=== PATIENT | female | born 1950 | race Caucasian/White ===

== ENCOUNTER 2021-01-06 17:31 | Emergency (ER) | payer MEDICARE, SELFPAY ==
--- NOTE | ~2021-01-06 | CT_ITS ---
EXAMINATION: CT brain wo con INDICATION: Headache, diplopia, left periorbital swelling COMPARISON: None TECHNIQUE: Standard unenhanced head CT. The dose-length product (DLP) was 605.33 mGy-cm. The mA was a djusted according to patient size. Iterative reconstruction technique was employed. FINDINGS: There is no acute intraparenchymal hemorrhage. No evidence of mass lesion. No evidence of a cute infarction. There is mild periventricular and subcortical hypodensity probably related to small vessel ischemic disease. There is mild prominence of the sulci and ventricles related to cerebral atr ophy. Intracranial calcified cerebral atherosclerosis is noted. There are no extra-axial collections. There is no mass effect or midline shift. There is enlargement of the left lacrimal gland with adjac ent preseptal inflammatory change. The visualized sinuses and mastoid air cells are well aerated. IMPRESSION: 1. No acute intracranial abnormality. 2. Age related findings. 3. Findings consistent with left dacroadenitis. Reviewed, dictated and finalized at location A.
--- NOTE | ~2021-01-06 | CT_ITS ---
EXAMINATION: CT orbit BI w con INDICATION: Redness and swelling of the left eye, diplopia TECHNIQUE: Computed tomographic images of the orbits were obtained after the administration of 75 cc of Omnipaque 350 intravenous contrast. The dose-length product (DLP) was 146.79 mGy-cm. Automated exp osure control and iterative reconstruction technique were employed. COMPARISON: None FINDINGS: There is asymmetric enlargement of the left lacrimal gland compared to the right. Surroundi ng preseptal inflammatory change is seen. No intraconal inflammation is identified. The right globe a nd orbit are normal. The facial bones are unremarkable. There is mild mucosal thickening left frontal sinus and in the ethmoidal air cells. IMPRESSION: 1. Left dacroadenitis. Reviewed, dictated and finalized at location A. IMPRESSION: 1. Left dacroadenitis.
[2021-01-06 17:35] VITALS: BP 123/81; PULSE 98; RESP 18; TEMP 36.4; O2SAT 99
[2021-01-06 17:57] LABS: Basophils Percent Auto 0.6 % (0.2-1.2); Eosinophils Absolute Auto 0.1 K/mm3 (0-0.3); Eosinophils Percent Auto 1.9 % (0-4.4); Hematocrit 41.7 % (37.0-47.0); Immature Granulocyte Absolute 0.01 K/mm3 (0.00-0.031); Immature Granulocyte Percent A 0.2 % (0-0.5); Lymphocytes Absolute Auto 1.93 K/mm3 (0.9-3.2); Lymphocytes Percent Auto 29.9 % (18.3-44.2); Mean Corpuscular HGB Conc 33.6 g/dl (32-36); Mean Corpuscular Hemoglobin 31.9 pg (26-34); Mean Platelet Volume 10.3 fl (7.4-10.4); Monocytes Absolute Auto 0.6 K/mm3 (0.1-0.6); Neutrophils Absolute Auto 3.8 K/mm3 (1.3-6.7); Neutrophils Percent Auto 58.4 % (45.5-73.1); Platelet Count Result 239 k/mm3 (150-375); Red Blood Count 4.39 M/mm3 (4.2-5.4); Red Cell Distribution Width 12.4 % (11.5-14.5); White Blood Count 6.5 K/mm3 (4.5-10.0)
[2021-01-06 18:13] LABS: Alanine Aminotransferase 17 U/L (4-35); Albumin Level 4.2 g/dL (3.5-5.1); Alkaline Phosphatase 64 U/L (38-126); Anion Gap 7 mmol/L (8-16); Aspartate Amino Transferase 25 U/L (14-36); Bilirubin,Total 0.5 mg/dL (0.2-1.3); Blood Urea Nitrogen 18 mg/dL (7-17); CRP 0.5 mg/dL (<1.0); Calcium 9.3 mg/dL (8.4-10.2); Carbon Dioxide 26 mmol/L (22-30); Chloride 107 mmol/L (98-107); Estimated CRCL calculation 68 ml/min; Estimated Glomerular Filt Rate > 60; Glucose 117 mg/dL (65-105); Potassium 3.8 mmol/L (3.4-5.0); Sodium 140 mmol/L (137-145)
--- NOTE | 2021-01-06 19:20 | ED.GENADULT ---
HPI - General Adult General Chief complaint: Eye Problems Stated complaint: need ct of eyes Time Seen by Provider: 01/06/21 19:05 Source: patient Mode of arrival: ambulatory Limitations: no limitations History of Present Illness HPI narrative: Patient is a 70-year-old female who presents to emergency department for evaluation patient has been under the treatment of ophthalmology at [facility] patient was evaluated this morning by her physician who and his assessment came up with acute atopic conjunctivitis left eye diplopia age-related nuclear cataract right eye and combined forms of age-related cataract left eye the plan was to treat as allergic conjunctivitis left upper and lower lid possible allergy to medication also recommended cool compresses and for allergy medicines she is currently on amoxicillin as well which was prescribed by a dentist patient on arrival in no distress. Patient denies injury or trauma. Patient was referred to imaging center for CT orbits with contrast. Patient notes that the symptoms have been persistent and not worsened over the course of 2 to 3 weeks Related Data Allergies Allergy/AdvReac Type Severity Reaction Status Date / Time ibuprofen Allergy Unknown Verified 02/13/19 14:41 strawberry Allergy Unknown Unverified 05/04/14 14:43 Sulfa (Sulfonamide Allergy Unknown Verified 02/13/19 14:41 Antibiotics) Review of Systems Review of Systems: All systems reviewed & are unremarkable except as noted in HPI and below PMFSH Family History Family History (Updated 02/13/19 @ 16:36 by DOCTOR UNKNOWN) Mother Diabetes mellitus Social History Social History Smoking status: Never smoker Alcohol intake: never Gender identity (if verbalized by the patient): Female Exam Narrative: Exam Narrative: GENERAL: Well-appearing, well-nourished, and in no acute distress. HEAD: Normocephalic, atraumatic. EYES: PERRLA and EOMI. patient with left eye with conjunctival injection and ptosis of the left upper eyelid, slight pink discoloration of the upper eyelid remainder of eye without abnormality. ENT: Nares clear, no rhinorrhea or epistaxis. Mucous membranes moist. NECK: Supple. No adenopathy or masses. CHEST: Clear to auscultation. No respiratory distress. No wheezes rales or rhonchi HEART: Regular rate and rhythm. No murmur heard. EXTREMITIES: Normal range of motion. No edema. SKIN: Warm, dry, no rash. NEURO: No focal deficits. Alert and oriented x3. Cranial nerves II through XII grossly intact PSYCH: Normal mood and affect. Course Course Emergency Course: Patient was evaluated in the emergency department imaging of the orbits and head revealed dacryoadenitis. Patient will be referred back to ophthalmology on Saturday as planned. Discussion was made with the patient's mental health consultant who would like her antibiotics switched to Keflex and for the patient to follow on Saturday for reevaluation and referral to specialist if necessary. Patient was made aware of discussion with ophthalmology and feels comfortable with this plan. Patient is afebrile nontoxic-appearing no distress at this time Consultations Consultation #1: Jose David mental health consultant for the patient was made aware of the case findings and would like the patient switched to Keflex and to follow on Saturday as planned for further evaluation Date: 01/06/21 Time: 21:15 Vital Signs Vital signs: Vital Signs Temperature 97.6 F 01/06/21 17:35 Pulse Rate 98 01/06/21 17:35 Respiratory Rate 18 01/06/21 17:35 Blood Pressure 123/81 01/06/21 17:35 Pulse Oximetry 99 01/06/21 17:35 Temperature 97.6 F 01/06/21 17:35 Pulse Rate 98 01/06/21 17:35 Respiratory Rate 18 01/06/21 17:35 Blood Pressure 123/81 01/06/21 17:35 Pulse Oximetry 99 01/06/21 17:35 Medical Decision Making MDM Narrative Medical decision making narrative: Patient evaluated in the emerg
[2021-01-06 21:25] VITALS: BP 127/86; PULSE 92; RESP 16; O2SAT 100
== END 2021-01-06 21:35 | disposition home or self-care (01) ==
PROVIDERS: General Practice; Emergency Provider Emergency Medicine
DX: H04.012 Acute dacryoadenitis, left lacrimal gland (principal); H10.12 Acute atopic conjunctivitis, left eye; H25.11 Age-related nuclear cataract, right eye; H25.812 Combined forms of age-related cataract, left eye
CPT/HCPCS: 36415; 70450; 70481; 80053; 85025; 86140; 99284; Q9967

== ENCOUNTER 2022-06-06 18:51 | Emergency (ER) | payer MEDICARE, SELFPAY ==
--- NOTE | ~2022-06-06 | XR_ITS ---
EXAM: XR sacrum coccyx min 2V DATE: 06/06/2022 19:51 HISTORY: fall on buttocks, c/o pain in tailbone . COMPARISON: None available. FINDINGS: Decreased mineralization. No definite acute fracture or dislocation. No lytic or blastic l esion. Fused second and third coccygeal elements. Degenerative changes in the lower lumbar spine. Pos terior displacement of the distal coccygeal element with associated sclerosis and osteophytosis betwe en the proximal and distal coccygeal elements, indicating this is likely a chronic finding. No erosio n or periosteal change. Soft tissues within normal limits. IMPRESSION: No definite acute osseous findings in the sacrum or coccyx, noting that physical examinat ion/AZEEM can be more sensitive than radiographs for acute injuries in these locations. Reviewed, dictated and finalized at location K. IMPRESSION: No definite acute osseous findings in the sacrum or coccyx, noting that physical examination/AZEEM can be more sensitive than radiographs for acute injuries in these locations.
[2022-06-06 19:27] VITALS: BP 116/87; PULSE 95; RESP 16; TEMP 36.3; O2SAT 98
--- NOTE | 2022-06-06 21:51 | ED.BACK ---
HPI - Back Pain/Injury General Chief Complaint: Back Pain/Injury Stated Complaint: fell while on bike, c/o tailbone pain Time Seen by Provider: 06/06/22 21:35 History of Present Illness HPI Narrative: This is a 71-year-old female who denies past medical history, who presents to the emergency department complaining of low back pain after tripping and striking her low back on a concrete bollard. She states the pain is dull and sore, 6 out of 10, does not radiate, is not associated with loss of sensation in the groin, bowel or bladder incontinence. She denies injury elsewhere, chest pain, palpitations or shortness of breath. Related Data Allergies Allergy/AdvReac Type Severity Reaction Status Date / Time ibuprofen Allergy Mild Itching Verified 06/06/22 22:17 strawberry Allergy Unknown Rash Unverified 06/06/22 22:17 Sulfa (Sulfonamide Allergy Unknown Itching Verified 06/06/22 22:17 Antibiotics) lidocaine AdvReac Itching Verified 06/06/22 22:17 Review of Systems Review of Systems: CONSTITUTIONAL: Denies fever, chills, or sweats. CARDIOVASCULAR: Denies chest pain, palpitations, or edema. RESPIRATORY: Denies cough or dyspnea. GASTROINTESTINAL: Denies abdominal pain, nausea, vomiting, or diarrhea. GENITOURINARY: Denies dysuria or hematuria. SKIN: Denies rash or itching. MUSCULOSKELETAL: Low back pain denies joint pain, or myalgia. NEUROLOGIC: Denies headache, numbness, dizziness, or weakness. PSYCHIATRIC: Denies anxiety or depression. [facility] Family History Family History (Updated 02/13/19 @ 16:36 by DOCTOR UNKNOWN) Mother Diabetes mellitus Social History Social History Smoking status: Never smoker Alcohol intake: never Gender identity (if verbalized by the patient): Female Exam Narrative: GENERAL: Well-appearing, well-nourished, and in no acute distress. HEAD: Normocephalic, atraumatic. EYES: PERRLA and EOMI. ENT: Nares clear, no rhinorrhea or epistaxis. Mucous membranes moist. Oropharynx without tonsillar hypertrophy exudate or other lesions. NECK: Supple. No adenopathy or masses. No carotid bruits or JVD CHEST: Clear to auscultation. No respiratory distress. No wheezes rales or rhonchi HEART: Regular rate and rhythm. No murmur heard. Normal peripheral pulses. ABDOMEN: Soft, nontender, nondistended, normal active bowel sounds. BACK: Tender to palpation over midline spine over approximately S1, without crepitus, contusion or induration EXTREMITIES: Normal range of motion. No edema. SKIN: Warm, dry, no rash. NEURO: No focal deficits. Alert and oriented x3. Strength 5 5 in bilateral lower extremities, sensation intact bilaterally PSYCH: Normal mood and affect. Course Course Emergency Course: 21:57 - X-ray not concerning for fracture. 22:25 - Reassessed patient, she states her pain is improved discussed return emergency precautions, including signs/symptoms of cauda equina. The patient voiced understanding and is comfortable with the plan. All questions answered to her satisfaction. Vital Signs Vital signs: Vital Signs Temperature 97.3 F L 06/06/22 19:27 Pulse Rate 95 06/06/22 19:27 Respiratory Rate 16 06/06/22 19:27 Blood Pressure 116/87 06/06/22 19:27 Pulse Oximetry 98 06/06/22 19:27 Temperature 97.3 F L 06/06/22 19:27 Pulse Rate 88 06/06/22 23:41 Respiratory Rate 16 06/06/22 23:41 Blood Pressure 116/87 06/06/22 19:27 Pulse Oximetry 98 06/06/22 23:41 MDM - Back Pain/Injury MDM Narrative Medical decision making narrative: Plan: Pain control, imaging Differential Diagnosis Differential diagnosis: Likely other (Spine fracture contusion, other) Discharge Plan Discharge Clinical Impression: Lumbar contusion Patient Disposition: Home, Self-Care Condition: Improved Instructions: Antibiotic Form, Acute Low Back Pain (ED), Contusion in Adults (ED) Additional Instructions: You were se
[2022-06-06] MEDS: ACETAMINOPHEN 500 MG TABLET 1000 MG PO (22:14)
[2022-06-06 23:41] VITALS: PULSE 88; RESP 16; O2SAT 98
== END 2022-06-06 23:44 | disposition home or self-care (01) ==
LOC: ANHED 22:00
PROVIDERS: Emergency Provider Preventive Medicine Aerospace Medicine
DX: S30.0XXA Contusion of lower back and pelvis, initial encounter (principal); W01.198A Fall on same level from slipping, tripping and stumbling with subsequent striking against other object, initial encounter
CPT/HCPCS: 72220; 99283; A9270

== ENCOUNTER 2023-08-28 08:58 | Inpatient (IN) | payer MEDICARE, SELFPAY ==
[2023-08-28] VITALS (10 sets, daily range): BP systolic 119–138; BP diastolic 71–96; PULSE 95–130; RESP 18–20; TEMP 36.3–37.4; O2SAT 94–100; BMI 22.6
--- NOTE | ~2023-08-28 | XR_ITS ---
XR knee LT 3V 09/02/2023 11:57 Indication: Left knee pain Procedure: 3 views left knee Comparison: 08/28/2023 Findings: Large joint effusion. Moderate tricompartment osteoarthritis. No fracture is identified. No foreign bodies. Impression: 1: Large joint effusion. Reviewed, dictated and finalized at location B. S REPRESENTATIVE PUBLIC UTILITIES Impression: 1: Large joint effusion.
--- NOTE | ~2023-08-28 | XR_ITS ---
Portable chest x-ray Comparison: 06/18/2008 Clinical History: Status post fall Findings: Calcified right basilar granuloma present. Lungs are otherwise clear. No pleural effusion or pneumothorax. Cardiomediastinal silhouette is stable. Bones and soft tissues are unremarkable. Impression: No significant abnormality. Reviewed, dictated and finalized at [facility]. NICAL DOCUMENTATION SPECIALIST Impression: No significant abnormality.
--- NOTE | ~2023-08-28 | XR_ITS ---
Left Knee Technique: AP, lateral, and sunrise views were obtained. Clinical History: Pain Findings: No fracture or dislocation is seen. Osseous alignment is anatomic. Minimal tricompartmental degenerative spurring present. Small joint effusion is seen. Impression: Minimal tricompartmental degenerative spurring. Small joint effusion. Reviewed, dictated and finalized at [facility]. ASSEMBLER Impression: Minimal tricompartmental degenerative spurring. Small joint effusion.
--- NOTE | ~2023-08-28 | CT_ITS ---
EXAMINATION: CT hip LT wo con DATE: 08/28/2023 11:38 INDICATION: Left hip pain. TECHNIQUE: Computed tomography (CT) of the left hip was performed without intravenous contrast. Autom ated exposure control and iterative reconstruction technique were employed. The dose-length product w as 249.97 mGy-cm. COMPARISON: Left hip radiographs 08/28/2023 FINDINGS: The bladder is distended. There is a subcapital fracture of left femoral neck. The distal f racture fragment demonstrates impaction and 20 degrees valgus angulation. There is mild left hip oste oarthritis. IMPRESSION: 1. Subcapital fracture of left femoral neck. 2. Mild left hip osteoarthritis. Reviewed, dictated and finalized at location A. STANT CROSS COUNTRY COACH
--- NOTE | ~2023-08-28 | XR_ITS ---
EXAMINATION: XR surgery orthopedic DATE: 08/29/2023 15:27 INDICATION: Pinning of a left hip subcapital fracture TECHNIQUE: 2 fluoroscopic images of the left hip were obtained in AP and lateral projections during p rocedure performed by Dr. Peguero. Radiologist was not present for the imaging or procedure. The [facility] nt of fluoroscopy time used during this procedure was 2.1 minutes. COMPARISON: 08/28/2023 FINDINGS: Interval fixation of a previous noted laterally impacted subcapital fracture of the proximal left fem ur with 3 cannulated lag screws which appear to been placed percutaneously over guide pins. Unchanged mild valgus angulation. No new fractures identified. Left hip joint space is relatively preserved. IMPRESSION: 1. Lag screw fixation of a nondisplaced subcapital fracture of the proximal left femur with unchanged lateral impaction/mild valgus angulation. Reviewed, dictated and finalized at location A. SEAT UPHOLSTERER IMPRESSION: 1. Lag screw fixation of a nondisplaced subcapital fracture of the proximal lef t femur with unchanged lateral impaction/mild valgus angulation.
--- NOTE | ~2023-08-28 | XR_ITS ---
AP and lateral views of the left hip Clinical history: Pain Findings: No definite acute fracture or dislocation is seen. Osseous alignment is anatomic. Bilateral hip and SI joint spaces are preserved. Soft tissues are unremarkable. Impression: No definite acute fracture seen, though there is some overlap of the femoral head neck junction later ally on the AP view. There is persistent clinical concern for hip fracture, cross-sectional imaging w ould be recommended for further evaluation. Reviewed, dictated and finalized at location M. SELING SERVICES MANAGER Impression: No definite acute fracture seen, though there is some overlap of the femoral he ad neck junction laterally on the AP view. There is persistent clinical concern for hip fracture, cross-sectional imaging would be recommended for further toyin luation.
--- NOTE | 2023-08-28 09:21 | ED.FALL ---
HPI - Fall General Chief Complaint: Fall Stated Complaint: ground level fall History of Present Illness HPI Narrative: 73-year-old female presented to emergency department for evaluation after having a ground level fall. Patient reports she was outside clearing brush when she fell and landed on her left hip. patient denies striking her head denies any loss of consciousness. Related Data Allergies Allergy/AdvReac Type Severity Reaction Status Date / Time ibuprofen Allergy Mild Itching Verified 08/28/23 15:00 strawberry Allergy Unknown Rash Unverified 08/28/23 15:00 Sulfa (Sulfonamide Allergy Unknown Itching Verified 08/28/23 15:00 Antibiotics) lidocaine AdvReac Itching Verified 08/28/23 15:00 Review of Systems Review of Systems: All systems reviewed & are unremarkable except as noted in HPI and below PMFSH Family History Family History (Updated 08/28/23 @ 14:59 by Felicity Manzo RN) Other Adopted Social History Social History Smoking status: Never smoker Alcohol intake: never Substance use: never Lack of Transportation: YES Lack of Food: Sometimes True Current Housing: I Have Housing Concerned About Future Housing: No Difficulty Paying Gas/Electric Bills: YES Difficulty Paying for Meds: No Currently Unemployed: No Education: Bachelor's Degree Difficulty w/ Childcare or Family Care: No Gender identity (if verbalized by the patient): Female Spiritual care concerns: No ([place]) Exam Narrative: APPEARANCE: Well appearing, no pain, no distress, well-nourished. HEAD: normocephalic, atraumatic. EYES: PERRLA/EOMI, conjunctivae clear. NOSE: Normal no drainage EARS:TMS clear with good light reflex. THROAT: Pharynx clear, no exudate. NECK: Supple. No adenopathy, no masses. RESPIRATORY: Airway patent, respirations nonlabored. Clear to auscultation bilaterally, no rales, rhonchi, wheezing. CARDIOVASCULAR: Regular rate and rhythm without murmurs rubs or gallops. ABDOMINAL: Soft, nontender, nondistended, normal bowel sounds MUSCULOSKELETAL: Full range of motion of the left hip and left knee, mild pain in left hip with range of motion NEURO: Alert. Cranial nerves II through XII intact. grossly intact SKIN: Warm, dry. Normal Color Course Course Emergency Course: 73-year-old female present to the emergency department for evaluation of a left hip fracture. Orthopedics was consulted. I discussed the case with the hospitalist and patient was accepted for admission. Patient was updated on the results of the workup and plan for admission and treatment. All questions and concerns were addressed patient was resting comfortably at time of admission. Vital Signs Vital signs: Vital Signs Temperature 97.4 F L 08/28/23 08:55 Pulse Rate 97 08/28/23 08:55 Respiratory Rate 20 08/28/23 08:55 Blood Pressure 133/95 H 08/28/23 08:55 Pulse Oximetry 100 08/28/23 08:55 Oxygen Delivery Room Air 08/28/23 08:55 Temperature 97.9 F 08/28/23 14:00 Pulse Rate 119 H 08/28/23 14:00 Respiratory Rate 18 08/28/23 14:00 Blood Pressure 138/96 H 08/28/23 14:00 Pulse Oximetry 98 08/28/23 14:00 Oxygen Delivery Room Air 08/28/23 14:49 MDM - Fall Lab Data Attestation: I reviewed the patient's lab results. 08/28/23 12:36 08/28/23 12:36 Labs: Lab Results 08/28/23 Range/Units 12:36 WBC 10.2 H (4.5-10.0) K/mm3 RBC 4.47 (4.2-5.4) M/mm3 Hgb 14.2 (12.0-15.0) g/dL Hct 43.1 (37.0-47.0) % MCV 96.4 (80-100) fl MCH 31.8 (26-34) pg MCHC 32.9 (32-36) g/dl RDW 12.6 (11.5-14.5) % Plt Count 219 (150-375) k/mm3 MPV 10.6 H (7.4-10.4) fl Immature Gran % (Auto) 0.6 H (0-0.5) % Neut % (Auto) 80.6 H (45.5-73.1) % Lymph % (Auto) 11.5 L (18.3-44.2) % [place] % (Auto) 6.8 (2.6-8.5) % Eos % (Auto) 0.1 (0-4.4) % Baso % (Auto) 0.4 (0.2-1.2)
--- NOTE | 2023-08-28 12:27 | ECG_ITS ---
Measurements Intervals [place] Rate: 139 P: MT: 0 QRS: 27 QRSD: 84 T: 28 QT: 286 QTc: 436 Interpretive Statements ATRIAL FIBRILLATION WITH RAPID VENTRICULAR RESPONSE CANNOT RULE OUT SEPTAL INFARCT, AGE INDETERMINATE LOW QRS VOLTAGE IN LIMB LEADS BORDERLINE ST-T WAVE ABNORMALITY- INFERIOR LEADS BASELINE ARTIFACT- I, II, III, AVR ,AVL, AVF, V1 ABNORMAL ECG NO PREVIOUS ECG AVAILABLE FOR COMPARISON Electronically Signed On 08-28-2023 15:13:03 CURAM DEVELOPER by Shekhar Abbott D.O.
[2023-08-28 12:43] LABS: Basophils Percent Auto 0.4 % (0.2-1.2); Eosinophils Percent Auto 0.1 % (0-4.4); Hematocrit 43.1 % (37.0-47.0); Hemoglobin 14.2 g/dL (12.0-15.0); Immature Granulocyte Absolute 0.06 K/mm3 (0.00-0.031); Immature Granulocyte Percent A 0.6 % (0-0.5); Lymphocytes Absolute Auto 1.17 K/mm3 (0.9-3.2); Lymphocytes Percent Auto 11.5 % (18.3-44.2); Mean Corpuscular HGB Conc 32.9 g/dl (32-36); Mean Corpuscular Hemoglobin 31.8 pg (26-34); Mean Corpuscular Volume 96.4 fl (80-100); Mean Platelet Volume 10.6 fl (7.4-10.4); Monocytes Absolute Auto 0.7 K/mm3 (0.1-0.6); Monocytes Percent Auto 6.8 % (2.6-8.5); Neutrophils Absolute Auto 8.2 K/mm3 (1.3-6.7); Neutrophils Percent Auto 80.6 % (45.5-73.1); Platelet Count Result 219 k/mm3 (150-375); Red Blood Count 4.47 M/mm3 (4.2-5.4); Red Cell Distribution Width 12.6 % (11.5-14.5); White Blood Count 10.2 K/mm3 (4.5-10.0)
[2023-08-28 12:53] LABS: Alanine Aminotransferase 31 U/L (6-35); Albumin Level 4.4 g/dL (3.5-5.1); Alkaline Phosphatase 79 U/L (38-126); Anion Gap 7 mmol/L (8-16); Aspartate Amino Transferase 36 U/L (14-36); Bilirubin,Total 1.2 mg/dL (0.2-1.3); Blood Urea Nitrogen 17 mg/dL (7-17); Calcium 9.3 mg/dL (8.4-10.2); Carbon Dioxide 26 mmol/L (22-30); Chloride 107 mmol/L (98-107); Estimated CRCL calculation 86 ml/min; Estimated Glomerular Filt Rate > 60; Glucose 100 mg/dL (65-110); Potassium 3.6 mmol/L (3.4-5.0); Sodium 140 mmol/L (137-145)
--- NOTE | 2023-08-28 12:55 | PC.NURSE ---
patient continent and able to use bedpan.
[2023-08-28 12:57] LABS: INR 1.1; Prothrombin Time 14.7 Seconds (11.1-14.7)
--- NOTE | 2023-08-28 14:10 | ADMGEN ---
This patient, Margarita Orta, was admitted to [facility] Surg Room 321-02. Patient/family oriented to hospital policies and general routines including ID bracelet, bed and alarms, visiting hours, pain management, procedures, bathroom and other care routines, personal items, smoking policy, room service/diet, and visiting hours. Information on how to activate the Rapid Response Team has been discussed. Patient/Family are encouraged to report perceived risks to care and to ask questions if they do not understand what they are told or what they should do.
--- NOTE | 2023-08-28 20:02 | PM.IMHP ---
H&P: HPI History of Present Illness Date/Time: 08/28/23 20:02 Chief Complaint: Fall, Hip Pain Narrative: 73 y/o F presents here with L hip pain post-fall with possible PMH of A-Fib. Patient reports that she was performing yd work today. Was attempting to walk up to the top of the hill to pull down brush. States she under estimated house teeth the incline was and lost her footing. States she fell onto her side and slid down the hill. After fall she was unable to move her left lower extremity, unclear if due to weakness or pain initially. She denies numbness or tingling in her lower left extremity. Denies head strike or loss of consciousness. ED workup revealed a subcapital fracture of the left femoral neck on CT. As well as possible recurrent AFib. Patient is poor historian and said that she has a few possible borderline conditions and was unable to elaborate. Upon further discussion of current tachycardia, she reports that she has a previous history of this and states that it was AFib. She declined treatment for this previously and has been attempting to exercise to treat. Unclear if patient has additional existing medical conditions. She currently lives at home alone and is able to answer orientation questions. No CP, palpitations or SOB at this time. Review of Systems Review of Systems: All systems reviewed & are unremarkable except as noted in HPI and below [facility] Past Medical History Medical History (Updated 08/28/23 @ 22:51 by Peg Julio APRN) Atrial fibrillation Family History Family History Other Adopted Social History Social History (Updated 08/28/23 @ 22:39 by Peg Julio APRN) Social History: Currently lives at home alone. Surrogate decision maker: Gloria Crowell, family friend. [phone]. Code Status: Full Code. Smoking status: Never smoker Alcohol intake: never Substance use: never Lack of Transportation: YES Lack of Food: Sometimes True Current Housing: I Have Housing Concerned About Future Housing: No Difficulty Paying Gas/Electric Bills: YES Difficulty Paying for Meds: No Currently Unemployed: No Education: Bachelor's Degree Difficulty w/ Childcare or Family Care: No Gender identity (if verbalized by the patient): Female Spiritual care concerns: No ([place]) Meds Home Medications and Allergies Home Medications Medication Instructions Recorded Confirmed Type cephalexin 500 mg tablet 500 mg PO Q6H 10 days #40 tabs 01/06/21 Rx acetaminophen 500 mg capsule 1,000 mg PO Q8H PRN fever or pain 06/06/22 Rx #60 caps Allergies Allergy/AdvReac Type Severity Reaction Status Date / Time ibuprofen Allergy Mild Itching Verified 08/28/23 15:00 strawberry Allergy Unknown Rash Unverified 08/28/23 15:00 Sulfa (Sulfonamide Allergy Unknown Itching Verified 08/28/23 15:00 Antibiotics) lidocaine AdvReac Itching Verified 08/28/23 15:00 Vital Signs Vital Signs - 24 hr 08/28/23 08:55 08/28/23 10:00 08/28/23 11:00 Temperature 97.4 F L Pulse Rate 97 95 100 Respiratory Rate 20 Blood Pressure 133/95 H 137/79 124/92 H Pulse Oximetry 100 100 94 Oxygen Delivery Room Air 08/28/23 13:07 08/28/23 13:15 08/28/23 13:30 Temperature Pulse Rate Respiratory Rate 18 Blood Pressure 138/93 H Pulse Oximetry 99 99 Oxygen Delivery 08/28/23 13:37 08/28/23 14:49 08/28/23 14:00 Temperature 97.9 F Pulse Rate 119 H Respiratory Rate 18 Blood Pressure 138/96 H Pulse Oximetry 97 98 Oxygen Delivery Room Air Exam Const: General: comfortable and no acute distress HENMT: Face/Nose/Sinus: Normal nares present Mouth: Yes moist mucous membranes Eyes: General: appearance normal, both eyes and all related structures Sclera: sclerae normal Pupils: Equal, round and reactive pupils present Resp: Effort & Inspection: normal respiratory eff
[2023-08-28] MEDS: dilTIAZem HCl INJ 25 MG/5 ML VIAL IV PUSH (20:45)
[2023-08-29] VITALS (23 sets, daily range): BP systolic 111–147; BP diastolic 76–95; PULSE 83–136; RESP 14–22; TEMP 36.4–38.2; O2SAT 95–99
--- NOTE | 2023-08-29 | ECHO_ITS ---
Patient Info Name: Margarita Orta Age: 73 years : 1950 Gender: Female Ht: 71 in Wt: 155 lbs BSA: 1.87 m2 HR: 88 bpm BP: 119 / 78 mmHg Heart Rhythm: Atrial Fibrillation Technical Quality: Good Exam Date: 08/29/2023 11:07 AM Exam Location: Echo Lab Patient Status: Inpatient Admit Date: 08/29/2023 Staff Ordering Physician: Grace Treviño Construction Project Assistant: Maritza Iverson RDCS Attending Provider: Radha Baxter MD Referring Physician: Kamila MCDONALD; Exam Type: CA echo doppler color flow Study Info Indications - a-fib Complete two-dimensional, color flow and Doppler transthoracic echocardiogram is performed. Summary 1. Complete two-dimensional, color flow and Doppler transthoracic echocardiogram is performed. 2. Left ventricular chamber dimension is normal. 3. Left ventricular systolic function is normal, estimated at 60-65%. 4. Right ventricular systolic function is normal. 5. Left atrial chamber dimension is moderately enlarged. 6. Right atrial chamber dimension is moderately enlarged. 7. There is mild mitral valve regurgitation. Left Ventricle Left ventricular chamber dimension is normal. Left ventricular systolic function is normal, estimated at 60-65%. There is no increased left ventricular wall thickness. Right Ventricle Right ventricular chamber dimension is normal. Right ventricular systolic function is normal. Left Atria Left atrial chamber dimension is moderately enlarged. Right Atria Right atrial chamber dimension is moderately enlarged. Atrial Septum Intact interatrial septum visualized by color flow imaging. Aortic Valve The aortic valve is trileaflet. There is no aortic valve stenosis. There is no aortic valve regurgitation. There is mild aortic valve calcification. Mitral Valve There is mild mitral valve regurgitation. The mitral valve annulus is mildly calcified. Tricuspid Valve There is trace tricuspid valve regurgitation. Pericardium/Pleural There is no pericardial effusion. Inferior Vena Cava Dilated inferior vena cava with >50% collapse upon inspiration consistent with elevated right atrial pressure, 8 mmHg. Aorta The aortic root size at the sinus of Valsalva is normal. Left Ventricular Outflow Tract Name Value Normal LVOT 2D LVOT Diameter 1.9 cm LVOT Doppler LVOT Peak Gradient 1 mmHg LVOT Mean Gradient 1 mmHg LVOT VTI 18 cm LVOT VTI/AV VTI Ratio 0.9 LVOT Stroke Volume 48 ml LVOT CO 2.5 l/min LVOT CI 1.3 l/min/m2 Pulmonic Valve Name Value Normal RVOT Doppler RVOT Peak Gradient 1 mmHg PV Doppler PV Peak Gradient 1 mmHg Mitral Valve
[2023-08-29] MEDS: METOPROLOL TARTRATE 25 MG TABLET PO ×3 (00:41→22:10)
[2023-08-29] MEDS: LACTATED RINGERS 1,000 ML 100 ML IV CONT (00:41)
[2023-08-29 06:31] LABS: Basophils Percent Auto 0.5 % (0.2-1.2); Eosinophils Percent Auto 0.1 % (0-4.4); Hematocrit 41.9 % (37.0-47.0); Immature Granulocyte Absolute 0.02 K/mm3 (0.00-0.031); Immature Granulocyte Percent A 0.3 % (0-0.5); Lymphocytes Absolute Auto 1.11 K/mm3 (0.9-3.2); Lymphocytes Percent Auto 14.4 % (18.3-44.2); Mean Corpuscular HGB Conc 33.4 g/dl (32-36); Mean Corpuscular Hemoglobin 32.6 pg (26-34); Mean Corpuscular Volume 97.4 fl (80-100); Monocytes Absolute Auto 0.6 K/mm3 (0.1-0.6); Monocytes Percent Auto 7.5 % (2.6-8.5); Neutrophils Absolute Auto 5.9 K/mm3 (1.3-6.7); Neutrophils Percent Auto 77.2 % (45.5-73.1); Platelet Count Result 206 k/mm3 (150-375); Red Cell Distribution Width 12.7 % (11.5-14.5); White Blood Count 7.7 K/mm3 (4.5-10.0)
[2023-08-29 06:46] LABS: Alanine Aminotransferase 25 U/L (6-35); Albumin Level 3.9 g/dL (3.5-5.1); Alkaline Phosphatase 68 U/L (38-126); Anion Gap 8 mmol/L (8-16); Aspartate Amino Transferase 33 U/L (14-36); Bilirubin,Total 2.2 mg/dL (0.2-1.3); Blood Urea Nitrogen 15 mg/dL (7-17); Calcium 8.9 mg/dL (8.4-10.2); Carbon Dioxide 22 mmol/L (22-30); Chloride 107 mmol/L (98-107); Estimated CRCL calculation 73 ml/min; Estimated Glomerular Filt Rate > 60; Glucose 123 mg/dL (65-110); Potassium 3.5 mmol/L (3.4-5.0); Sodium 137 mmol/L (137-145)
[2023-08-29 06:50] LABS: NT Pro B Type Natriuretic Pept 1490 pg/mL (19.9-100)
[2023-08-29 07:26] LABS: Thyroid Stimulating Hormone Reflex 0.531 uIU/mL (0.465-4.68)
--- NOTE | 2023-08-29 07:56 | PM.IMPN ---
Progress Note: A&P Assessment and Plan (1) Fracture of hip, left, closed: Qualifiers: Encounter type: initial encounter Qualified Code(s): S72.002A - Fracture of unspecified part of neck of left femur, initial encounter for closed fracture Code(s): S72.002A - Fracture of unspecified part of neck of left femur, initial encounter for closed fracture Status: Acute Assessment and Plan: 08/28 Initial hip x-ray showed some overlap of femoral head neck junction laterally on AP view.? Further investigated with CT showing subcapital fracture of the left femoral neck. No neurovascular concern. Orthopedist consulted.? Will make NPO at midnight and add type and screen, none on file.? Coags, CXR, and EKG completed. Continue pain management. 08/29: Fracture of left femur - orthopedics consulted with plan for operative repair today. Pain is well controlled. (2) Atrial fibrillation: Qualifiers: Atrial fibrillation type: unspecified Qualified Code(s): I48.91 - Unspecified atrial fibrillation Code(s): I48.91 - Unspecified atrial fibrillation Status: Acute Assessment and Plan: 08/28: Lengthy discussion with patient, approximately 30 minutes.? Poor understanding of diagnosis and etiology.? Initially refusing care stating she would exercise and improve her heart /cure her AFib that way, would like to see a funeral planning counselor who supported that.? reiterated multiple times that although a well conditioned heart is a healthy choice, will not cure an electrical issue. ? Patient agreed to medications after risks discussed. initiate tele monitoring.? Given diltiazem 25 IVP with improvement: 120's -> 80's. will transition to metoprolol 25 mg BID PO. CHADS-VASc Score - 3. Given possibility of surgery for new hip fracture, will hold on anticoagulation. SCDs in interim. Add BNP and TSH to a.m. labs. consultation to cardiology. 08/29: Cardiology consulted and appreciate recs. Patient states she has had this in the past but is not on any treatment. Echo with normal hfpef. Patient was given an IV load of cardizem yesterday and changed to metoprolol - rate has metoprolol 25mg bid thus far. BNP mild elevation likely 2/2 to demand. TSH 0.5. CHADS-VASc 3, likely benefit from anticoagulation postoperatively. Consider starting eliquis tomorrow. Plan Diet: Rec. Heart Healthy after procedure. Activity: Per orthopedic recs. Analgesia: Currently fentanyl, norco, tylenol VTE prophylaxis: Hold pending operative management - consider apixaban tomorrow. Disposition: Expect 24-48 hours of further management. Time Spent With Patient Time with patient: 25 - 35 minutes Subjective Date/time seen: 08/29/23 07:56 Interval history: 08/29: Margarita states the left lower extremity is not painful unless moved. She denies any chest pain or shortness of breath. She does not have any palpitations. Review of Systems Review of Systems: All systems reviewed & are unremarkable except as noted in HPI and below Exam Narrative: GENERAL APPEARANCE: Appears to be in no acute distress. HEAD: normocephalic atraumatic EYES: PERRL, EOMI. Vision grossly intact. ENT: Hearing grossly intact, no nasal discharge NECK: Neck supple, trachea midline. CARDIAC: IRIR with normal rate. No murmurs, rubs, or gallops. No cyanosis or pallor. Extremities are warm and well perfused. LUNGS: Clear to auscultation without rales, rhonchi, wheezing or diminished breath sounds. Respirations even and unlabored. ABDOMEN: BS positive x 4 quadrants. Soft, nondistended, nontender. No guarding or rebound. PERIPHERAL VASCULAR: Peripheral pulses palpable. Normal perfusion, cap refill <2 seconds. No edema. NEURO: Follows commands. No focal deficits. SKIN: [place] without lesions or eruptions. PSYCH: Stable, no paranoia or delusional thinking. Objective Data Vital Signs Vital Signs: Vital Signs - 24 hr 08/28/23 08:55 08/28/23 10:00 08/28/23 11:00 Temperatu
--- NOTE | 2023-08-29 08:48 | PM.CNCAR ---
Assessment and Plan Assessment and plan (1) Atrial fibrillation: Qualifiers: Atrial fibrillation type: unspecified Qualified Code(s): I48.91 - Unspecified atrial fibrillation Code(s): I48.91 - Unspecified atrial fibrillation Status: Acute Assessment and Plan: Presents after sustaining ground level fall and has been found to be in atrial fibrillation. Chronicity is unknown, but sounds like she has a history of PAF. Continue rate control strategy for now with metoprolol 25m b.i.d. Start DOAC when okay with ortho surgery Check echo Check TSH Can d/c telemetry tomorrow if she remains rate controlled overnight Can consider outpatient DCCV in 4-6 weeks. History of Present Illness History of Present Illness Consult date/time: 08/29/23 08:48 Requesting physician: Peg Julio APRN Consult reason: atrial fibrillation Reason For Visit: hip fracture Narrative: Margarita Orta is a 73 year old female who was hospitalized following a ground level fall. She has been found to have a fracture of the left hip. I am seeing her because of atrial fibrillation with rapid ventricular response. She reports she was told she had atrial fibrillation a couple of years ago during a hospitalization at [place] but apparently has never been treated. She states her heart rate is generally around 100bpm when she checks it. She denies any other cardiac history. Denies any palpitations, chest pain, shortness of breath, swelling. She is currently still in atrial fibrillation with rate controlled in the 80's and is asymptomatic. Review of Systems Review of Systems: All systems reviewed & are unremarkable except as noted in HPI and below PMFSH Past Medical History Medical History Atrial fibrillation Family History Family History Other Adopted Social History Social History Social History: Currently lives at home alone. Surrogate decision maker: Gloria Crowell, family friend. [phone]. Code Status: Full Code. Smoking status: Never smoker Alcohol intake: never Substance use: never Lack of Transportation: YES Lack of Food: Sometimes True Current Housing: I Have Housing Concerned About Future Housing: No Difficulty Paying Gas/Electric Bills: YES Difficulty Paying for Meds: No Currently Unemployed: No Education: Bachelor's Degree Difficulty w/ Childcare or Family Care: No Gender identity (if verbalized by the patient): Female Spiritual care concerns: No (Yazidism) Meds Home Medications and Allergies Home Medications Medication Instructions Recorded Confirmed Type acetaminophen 500 mg capsule 1,000 mg PO Q8H PRN fever or pain 06/06/22 08/29/23 Rx #60 caps Allergies Allergy/AdvReac Type Severity Reaction Status Date / Time ibuprofen Allergy Severe Dyspnea / Verified 08/29/23 09:18 SOB strawberry Allergy Unknown Rash Verified 08/29/23 09:18 Sulfa (Sulfonamide Allergy Unknown Itching Verified 08/28/23 15:00 Antibiotics) lidocaine AdvReac Unknown Itching Verified 08/29/23 09:18 Vital Signs Vital Signs - 24 hr 08/28/23 08:55 08/28/23 10:00 08/28/23 11:00 Temperature 36.3 C L Pulse Rate 97 95 100 Respiratory Rate 20 Blood Pressure 133/95 H 137/79 124/92 H Pulse Oximetry 100 100 94 Oxygen Delivery Room Air 08/28/23 13:07 08/28/23 13:15 08/28/23 13:30 Temperature Pulse Rate Respiratory Rate 18 Blood Pressure 138/93 H Pulse Oximetry 99 99 Oxygen Delivery 08/28/23 13:37 08/28/23 14:49 08/28/23 14:00 Temperature 36.6 C Pulse Rate 119 H Respiratory Rate 18 Blood Pressure 138/96 H Pulse Oximetry 97 98 Oxygen Delivery Room Air 08/28/23 20:47 08/28/23 20:00 08/28/23 20:00 Temperature 37.4 C Pulse Rate 120 H 129 H 130
--- NOTE | 2023-08-29 09:18 | PM.CNOR ---
Assessment and Plan Assessment and plan (1) Fracture of hip, left, closed: Qualifiers: Encounter type: initial encounter Qualified Code(s): S72.002A - Fracture of unspecified part of neck of left femur, initial encounter for closed fracture <MyraMAE Rashid - Last Filed: 08/29/23 12:07> Code(s): S72.002A - Fracture of unspecified part of neck of left femur, initial encounter for closed fracture <Myrasa Opal Abdullahi ELECTROTYPE MOLDER - Last Filed: 08/29/23 12:07> Status: Acute <Myra JoeLuma Abdullahi ELECTROTYPE MOLDER - Last Filed: 08/29/23 12:07> Assessment and Plan: History, exam, radiographs and CT scan reviewed with the patient. Radiographs and CT of the left hip reveal a subcapital fracture of left femoral neck. The fracture type and injury as well as radiographs discussed with the patient and family. Operative and nonoperative treatment options reviewed. The patients questions were answered. The patient desires operative treatment. Discussed CRPP of the left hip fracture . Risks of surgery including but not limited to neurovascular damage, wound complications, blood clot, pulmonary embolus, stroke, myocardial infarction, anesthetic risks up to and including were reviewed. Continued pain and possible dysfunction were explained. No guarantees were offered. The patient understands and wishes to proceed. Plan: CRPP Left Hip by Dr. Peguero NPO Bedrest Obtain consent HOLD Anticoagulation Pain Control Dispo: CC Consult for TOBIN postoperatively. Patient lives at home alone. <MAE Rodgers - Last Filed: 08/29/23 12:07> (2) Atrial fibrillation: Qualifiers: Atrial fibrillation type: unspecified Qualified Code(s): I48.91 - Unspecified atrial fibrillation <MAE Rodgers - Last Filed: 08/29/23 12:07> Code(s): I48.91 - Unspecified atrial fibrillation <MAE Rodgers - Last Filed: 08/29/23 12:07> Status: Acute <MAE Rodgers - Last Filed: 08/29/23 12:07> Assessment and Plan: Discussed history, injury, radiographs and CT scan with attending physician, Dr. Peguero. Agrees with current plan as indicated above. Agrees with surgical indication at this time. <MAE Rodgers - Last Filed: 08/29/23 12:07> History of Present Illness HPI Consult date: 08/29/23 <MAE Rodgers - Last Filed: 08/29/23 12:07> 08/29/23 <Isaac Peguero MD - Last Filed: 08/29/23 15:41> Consult reason: fracture (LEFT ) <MAE Rodgers - Last Filed: 08/29/23 12:07> Chief complaint: hip fracture <MAE Rodgers - Last Filed: 08/29/23 12:07> Narrative: 73-year-old female presented emergency room after a fall at home in her yard. Patient lives at home independently with her cat. Radiographs and CT scan obtained in the emergency room reveal a subcapital fracture of left femoral neck. Orthopedic consult requested. <MAE Rodgers - Last Filed: 08/29/23 12:07> Review of Systems Constitutional: Constitutional: Reports no additional constitutional complaints, Denies chills, Denies fatigue, Denies fever(s), Denies headache(s) and Denies weakness <MAE Rodgers - Last Filed: 08/29/23 12:07> Eyes: Eyes: Denies change in vision <MAE Rodgers - Last Filed: 08/29/23 12:07> ENT: Reports Normal hearing present and Denies headache(s) <MAE Rodgers - Last Filed: 08/29/23 12:07> Cardiovascular: Cardiovascular: Denies chest pain and Denies dyspnea <MAE Rodgers - Last Filed: 08/29/23 12:07> Respiratory: Respiratory: Denies cough, Denies dyspnea and Denies wheezing <MAE Rodgers - Last Filed: 08/29/23 12:07> Gastrointestinal: Gastrointestinal: Denies constipation, Denies diarrhea, Denies nausea and Denies vomiting <MAE Rodgers - Last Filed: 08/29/23 12:07> Genitourinary: Genitourinary: Denies hematuria and Denies dysuria <MAE Rodgers - Last Filed:
--- NOTE | 2023-08-29 09:47 | WPDHPUPDATE1 ---
History and Physical Update Update Date/Time: 08/29/23 09:47 History and Physical has been reviewed, including an updated exam of the patient. There are NO changes in the patient's condition. Risks, benefits, and alternatives have been discussed and questions answered. Patient agrees to proceed with procedure.
--- NOTE | 2023-08-29 13:41 | WPDANESEPPF ---
Anes - Initial Pre Proc Eval Procedure: Operation Date: 08/29/23 14:00 Proposed Procedures p Left Hip Pinning - Isaac Peguero MD Date/Time: 08/29/23 13:41 Surgeon: Radha Baxter MD Pre Op Diagnosis: hip fracture Patient Data Age: 73 Gender: F Height: 1.77 m Weight: 70.5 kg Last Vital Signs Temp 37.0 C 08/29/23 05:39 Pulse 88 08/29/23 09:43 Resp 18 08/29/23 05:39 BP 119/78 08/29/23 05:39 Pulse Ox 96 08/29/23 05:39 O2 Del Method Room Air 08/29/23 09:35 Allergies Allergy/AdvReac Type Severity Reaction Status Date / Time ibuprofen Allergy Severe Dyspnea / Verified 08/29/23 09:18 SOB strawberry Allergy Unknown Rash Verified 08/29/23 09:18 Sulfa (Sulfonamide Allergy Unknown Itching Verified 08/28/23 15:00 Antibiotics) lidocaine AdvReac Unknown Itching Verified 08/29/23 09:18 Home Medications Medication Instructions Recorded Confirmed Type acetaminophen 500 mg capsule 1,000 mg PO Q8H PRN fever or pain 06/06/22 08/29/23 Rx #60 caps Laboratory Tests 08/29/23 06:06 WBC 7.7 K/mm3 (4.5-10.0) RBC 4.30 M/mm3 (4.2-5.4) Hgb 14.0 g/dL (12.0-15.0) Hct 41.9 % (37.0-47.0) MCV 97.4 fl (80-100) MCH 32.6 pg (26-34) MCHC 33.4 g/dl (32-36) RDW 12.7 % (11.5-14.5) Plt Count 206 k/mm3 (150-375) MPV 11.0 H fl (7.4-10.4) Immature Gran % (Auto) 0.3 % (0-0.5) Neut % (Auto) 77.2 H % (45.5-73.1) Lymph % (Auto) 14.4 L % (18.3-44.2) [place] % (Auto) 7.5 % (2.6-8.5) Eos % (Auto) 0.1 % (0-4.4) Baso % (Auto) 0.5 % (0.2-1.2) Lymph # (Auto) 1.11 K/mm3 (0.9-3.2) [place] # (Auto) 0.6 K/mm3 (0.1-0.6) Eos # (Auto) 0.0 K/mm3 (0-0.3) Baso # (Auto) 0.0 K/mm3 (0.0-0.1) Abs Immat Gran (auto) 0.02 K/mm3 (0.00-0.031) Absolute Neuts (auto) 5.9 K/mm3 (1.3-6.7) Absolute Nucleated RBC 0.0 K/mm3 (0.0-0.012) Nucleated RBC % 0.0 % (0.0-0.2) Sodium 137 mmol/L (137-145) Potassium 3.5 mmol/L (3.4-5.0) Chloride 107 mmol/L (98-107) Carbon Dioxide 22 mmol/L (22-30) Anion Gap 8 mmol/L (8-16) BUN 15 mg/dL (7-17) Creatinine 0.60 L mg/dL (0.7-1.0) Estim Creat Clear Calc 73 ml/min Estimated GFR > 60 (59 - ) Glucose 123 H mg/dL (65-110) Calcium 8.9 mg/dL (8.4-10.2) Total Bilirubin 2.2 H mg/dL (0.2-1.3) AST 33 U/L (14-36) ALT 25 U/L (6-35) Alkaline Phosphatase 68 U/L (38-126) NT-Pro-B Natriuret Pep 1490 H pg/mL (19.9-100) Total Protein 7.0 g/dL (6.3-8.2) Albumin 3.9 g/dL (3.5-5.1) TSH (Reflex) 0.531 uIU/mL (0.465-4.68) Blood Type A Positive Antibody Screen Negative Patient hx anesthesia problems: none Family hx anesthesia problems: none Results Review: All pre-operative results and documents have been reviewed as part of the pre-operative evaluation. [facility] Past Medical History Medical History Atrial fibrillation Family History Family History Other Adopted Social History Social History Social History: Currently lives at home alone. Surrogate decision maker: Gloria Crowell, family friend. [phone]. Code Status: Full Code. Smoking status: Never smoker Alcohol intake: never Substance use: never Lack of Transportation: YES Lack of Food: Sometimes True Current Housing: I Have Housing Concerned About Future Housing: No Difficulty Paying Gas/Electric Bills: YES Difficulty Paying for Meds: No Currently Unemployed: No Education: Bachelor's Degree Difficulty w/ Childcare or Family Care: No Gender identity (if verbalized by the patient): Female Spiritual care concerns: No (Hinduism) Anes - Eval Final PreProcedure Day of Proced
[2023-08-29] MEDS: TRANEXAMIC ACID 1,000MG/ISO100 1,000 MG/100 ML BAG 200 MG IVPB (14:30)
[2023-08-29] MEDS: ceFAZolin 2 GM/D5W 50 ML 2 GM/50 ML BAG IVPB ×2 (14:37→23:40)
--- NOTE | 2023-08-29 15:34 | W.PM.PROC2 ---
Procedure Note - Detailed Date of Procedure 08/29/23 Pre-op Diagnosis LEFT FEMORAL NECK FRACTURE Post-op Diagnosis Same Procedure Performed PERCUTANEOUS PINNING LEFT FEMORAL NECK FRACTURE Surgeon Isaac Peguero MD Anesthesia General Description of Procedure THE PATIENT WAS TAKEN TO THE OPERATING ROOM AND PLACED UNDER GENERAL ANESTHESIA. THE PATIENT WAS PLACED ON A FRACTURE TABLE. THE LEFT LOWER EXTREMITY WAS PREPPED AND DRAPED IN THE STERIL FASHION FROM THE KNEE TO THE ILIAC CREST. THE INCISION WAS MADE ON THE LATERAL HIP JUST DISTAL TO THE GREATER TROCHANTER DOWN TO THE BONE. BLEEDERS WERE CAUTERIZED. 3 GUIDE PINS WERE PLACED THROUGH THE FEMORAL NECK AND PASSED THE FRACTURE SITE AND IN TO THE SUBCHONDRAL BONE OF THE FEMORAL HEAD. THREE 7.0 X 90 mm CANNULATED SCREWS BY ARTHREX WERE PLACED OVER THE GUIDE PINS AND THESE WERE SHOWN TO BE IN GOOD POSITION PER FLUOROSCOPY ON BOTH THE AP AND LATERAL VIEWS. ALL SCREWS HAD EXCELLENT BITES. THE WOUND WAS WASHED WELL. THE DEEP FASCIAL LAYER WAS APPROXIMATED WITH #0 VICRYL SUTURE, THE SUBCUTANEOUS LAYER WITH 2-0 VICRYL AND THE SKIN WAS APPROXIMATED WITH ADIN. A STERILE DRESSING WAS PLACED. THE PATIENT WAS EXTUBATED AND SENT TO RECOVERY ROOM Estimated Blood Loss 20 Drains No Complications No immediate complications Condition Stable Disposition PACU
[2023-08-29] MEDS: LACTATED RINGERS 1,000 ML 30 ML IV CONT (15:37)
[2023-08-29] MEDS: fentaNYL CITRATE INJ (*CRX) 100 MCG/2 ML VIAL 25 MCG IV PUSH ×2 (15:59→16:02)
--- NOTE | 2023-08-29 22:29 | ECG_ITS ---
Measurements Intervals [place] Rate: 111 P: ME: 0 QRS: 44 QRSD: 81 T: -17 QT: 316 QTc: 431 Interpretive Statements ATRIAL FIBRILLATION WITH RAPID VENTRICULAR RESPONSE BASELINE ARTIFACT LOW QRS VOLTAGE IN EXTREMITY LEADS [QRS DEFLECTION < 0.5 mV IN LIMB LEADS] CANNOT RULE OUT sEPTAL MYOCARDIAL INFARCTION , PROBABLY OLD [40+ ms Q WAVE IN V1/V2] ABNORMAL ECG COMPARED TO ECG 08/28/2023 13:00:13 NO SIGNIFICANT CHANGES Electronically Signed On 08-31-2023 13:47:12 P[employer]IVEN [employer]KER by Juan M Myers M.D.
--- NOTE | 2023-08-29 22:29 | PC.NURSE ---
Pt has been refusing care throughout the night. This nurse, the charge nurse and eventually the PA spent extensive amounts of time trying to encourage pt to take her medication due to a high heart rate in AFib/AFlutter. Pt finally took her metoprolol after extensive eduction. Pt's HR remains elevated and her rhythm irregular. Discussed IV medication with pt who refused it at this time.
--- NOTE | 2023-08-29 23:32 | PM.EVENT ---
Event Note Event Note Event Note: Cross Coverage: Patient refusing oral metoprolol stating she wanted to attempt to see if a 1 time dose of metoprolol would cure her atrial fibrillation. Extensive nursing education for approximately 30-40 minutes was provided. briefly agreed to take med and it was given to patient. she then spit out the medication. Patient's HR then 115-120's later in evening. Nursing staff called provider, I then went to the bedside to discuss the patient's diagnosis with her again. Discussed risk factors of not treating atrial fibrillation and what atrial fibrillation is. Patient reported difficulty taking medications in general. Would like to take a medication for her atrial fibrillation that was once daily. Patient then agreed to take a 2nd dose of metoprolol if a 1 time dose daily would be possible for in the mornings. Transitioned from metoprolol 25 mg b.i.d. to 50 mg IR once daily. However, due to missed dosed patient's heart rate then increased to the 130's-140's. Given one time dose of Dilt 20 mg IVP. continue to monitor telemetry overnight. Given repeated need for re-education and poor understanding of healthcare conditions, concern for inability for patient to care for herself due to lack of understanding/reasoning. Showing signs of manic behavior - easily distracted, illogical thinking, reported less sleep, occasional rapid speech. Please evaluate in a.m.
[2023-08-29] MEDS: dilTIAZem HCl INJ 25 MG/5 ML VIAL 20 MG IV PUSH (23:59)
[2023-08-30] VITALS (10 sets, daily range): BP systolic 105–143; BP diastolic 71–98; PULSE 94–111; RESP 14–20; TEMP 36.7–37.2; O2SAT 95–99
[2023-08-30] MEDS: ceFAZolin 2 GM/D5W 50 ML 2 GM/50 ML BAG IVPB ×2 (05:56→14:23)
[2023-08-30 06:22] LABS: Basophils Percent Auto 0.2 % (0.2-1.2); Hematocrit 42.1 % (37.0-47.0); Hemoglobin 14.2 g/dL (12.0-15.0); Immature Granulocyte Absolute 0.05 K/mm3 (0.00-0.031); Immature Granulocyte Percent A 0.4 % (0-0.5); Lymphocytes Absolute Auto 1.38 K/mm3 (0.9-3.2); Lymphocytes Percent Auto 10.7 % (18.3-44.2); Mean Corpuscular HGB Conc 33.7 g/dl (32-36); Mean Corpuscular Hemoglobin 32.3 pg (26-34); Mean Corpuscular Volume 95.7 fl (80-100); Mean Platelet Volume 10.7 fl (7.4-10.4); Monocytes Absolute Auto 1.1 K/mm3 (0.1-0.6); Monocytes Percent Auto 8.2 % (2.6-8.5); Neutrophils Absolute Auto 10.4 K/mm3 (1.3-6.7); Neutrophils Percent Auto 80.5 % (45.5-73.1); Platelet Count Result 197 k/mm3 (150-375); Red Cell Distribution Width 12.4 % (11.5-14.5); White Blood Count 12.9 K/mm3 (4.5-10.0)
[2023-08-30 06:35] LABS: Anion Gap 9 mmol/L (8-16); Blood Urea Nitrogen 16 mg/dL (7-17); Calcium 8.9 mg/dL (8.4-10.2); Carbon Dioxide 21 mmol/L (22-30); Chloride 104 mmol/L (98-107); Estimated CRCL calculation 86 ml/min; Estimated Glomerular Filt Rate > 60; Glucose 126 mg/dL (65-110); Potassium 3.6 mmol/L (3.4-5.0); Sodium 134 mmol/L (137-145)
[2023-08-30] MEDS: FAMOTIDINE 20 MG TABLET PO (08:43)
[2023-08-30] MEDS: METOPROLOL SUCCINATE EXT REL 50 MG TABCR PO (08:43)
[2023-08-30] MEDS: ENOXAPARIN 40 MG/0.4 ML SYRINGE SUB-Q (08:44)
--- NOTE | 2023-08-30 09:46 | PM.PNORT ---
Progress Note: A&P Assessment and Plan (1) Fracture of hip, left, closed: Qualifiers: Encounter type: initial encounter Qualified Code(s): S72.002A - Fracture of unspecified part of neck of left femur, initial encounter for closed fracture Code(s): S72.002A - Fracture of unspecified part of neck of left femur, initial encounter for closed fracture Status: Acute Assessment and Plan: POD #1: PERCUTANEOUS PINNING LEFT FEMORAL NECK FRACTURE Continue PT/OT. TTWB. Walker. HIGH FALL RISK. Continue pain control. Ice hip. Protect skin. DVT prophylaxis with Lovenox but transition to Xarelto upon discharge.. SCDs. Incentive Spirometry Use reviewed. Monitor Dressing. Change prior to discharge. Bowel Regimen. Dispo: [facility] vs. SNF pending progress with PT/OT (2) Atrial fibrillation: Qualifiers: Atrial fibrillation type: unspecified Qualified Code(s): I48.91 - Unspecified atrial fibrillation Code(s): I48.91 - Unspecified atrial fibrillation Status: Acute Subjective Subjective Date/Time Seen: 08/30/23 09:46 Post Op day: 1 Interval history: POD #1: PERCUTANEOUS PINNING LEFT FEMORAL NECK FRACTURE Patient awake/alert. Sitting up in bed. Uncomfortable because she would like to bend her knees more. Pain well controlled lateral hip. Events of overnight with medication compliance discussed. No new concerns. Review of Systems Constitutional: Constitutional: Denies chills, Denies fatigue, Denies fever(s), Denies night sweats and Denies weakness Cardiovascular: Cardiovascular: Denies chest pain, Denies lightheadedness, Denies palpitations and Denies dyspnea Respiratory: Respiratory: Denies cough, Denies dyspnea and Denies wheezing Gastrointestinal: Gastrointestinal: Denies abdominal pain, Denies diarrhea, Denies nausea and Denies vomiting Musculoskeletal: Musculoskeletal: Reports arthralgias (left hip ), Reports joint swelling (left hip ) and Denies numbness Neurologic: Denies numbness and Denies weakness Endocrine: Endocrine: Denies fatigue and Denies palpitations Allergic/Immunologic: Allergic/Immunologic: Denies wheezing Exam Const: General: comfortable and no acute distress Orientation/consciousness: patient oriented x3 Limitations: no limitations Resp: Effort & Inspection: normal respiratory effort Cardio: Rate: regular rate Rhythm: regular rhythm GI: Inspection: non-distended Skin: General skin exam: normal color and wounds noted (incision left hip C/D/I ) Wounds: wounds noted (incision left hip C/D/I ) Neuro: General: patient oriented x3 Extrem: Left lower extremity: hip/thigh Details: tenderness Location: of the hip Location: laterally and anteriorly, swelling (thigh soft ) Location: of the hip (lateral. ), abnormal ROM (limitations with internal/external rotation and flexion/extension due to recent surgical intervention ) and other (incision lateral hip c/d/i. ), knee Details: normal to inspection and normal ROM; no tenderness and no swelling, lower leg (Negative Demetria's Sign ) Details: no edema, ankle (+ankle dorsiflexion/plantarflexion ) Details: normal to inspection, no edema and normal ROM; no tenderness, no swelling and no warmth and foot Details: normal capillary refill, toes with normal ROM, vascular exam Details: dorsalis pedis pulse present and motor-sensory exam light-touch normal in all toes; no tenderness, no ecchymosis and no crepitus Psych: Mental Status: mental status grossly normal Affect: normal affect Objective Data Vital Signs Vital Signs: Vital Signs - 24 hr 08/29/23 13:06 08/29/23 15:37 08/29/23 15:55 Temperature 38.2 C H 36.4 C L Pulse Rate 85 113 H 97 Respiratory Rate 18 14 22 H Blood Pressure 111/79 147/77 H 131/85 Pulse Oximetry 99 96 98 Oxygen Delivery Room Air Simple Face Mask Simple Face Mask Oxygen Flow Rate 8 8 08/29/23 16:10 08/29/23 16:25 08/29/23 16:39 Temperature Pulse Rate 99 102 H 101 H Respirator
--- NOTE | 2023-08-30 10:30 | PM.PNCARD ---
Progress Note: A&P Assessment and Plan (1) Atrial fibrillation: Qualifiers: Atrial fibrillation type: unspecified Qualified Code(s): I48.91 - Unspecified atrial fibrillation Code(s): I48.91 - Unspecified atrial fibrillation Status: Acute Assessment and Plan: Presents after sustaining ground level fall and has been found to be in atrial fibrillation. Chronicity is unknown, but sounds like she has a history of PAF. Continue rate control strategy for now with Toprol XL 50mg daily. Start DOAC when okay with ortho surgery. Prefer Xarelto 20mg daily as this is a once daily medication and she is hesitant to take medication - more likely to be compliant with this vs Eliquis. Echo unremarkable, normal LVSF, no significant valve pathology. She does have moderate FRAN. TSH normal Would continue telemetry for now Can consider outpatient DCCV in 4-6 weeks. Will arrange outpatient office follow up Cardiology will sign off please call with questions. Subjective Date/time seen: 08/30/23 10:30 Interval history: Cardiology follow up for atrial fibrillation Telemetry now showing atrial flutter, rate generally around 100bpm, but did have some RVR in the 130's - 140's last night apparently because she refused medication. She denies feeling any palpitations, chest pain, or shortness of breath. Does not have any pain in her left leg unless she moves it. Review of Systems Review of Systems: All systems reviewed & are unremarkable except as noted in HPI and below Exam Const: General: comfortable, no acute distress, alert and awake Orientation/consciousness: patient oriented x3 HENMT: Head: normal to inspection Eyes: General: appearance normal, both eyes and all related structures Pupils: Equal, round and reactive pupils present Neck: Neck: normal visual inspection, supple and no JVD Carotids: normal carotid upstroke Resp: Effort & Inspection: normal respiratory effort Auscultation: clear to auscultation bilaterally Cardio: Rate: regular rate Rhythm: abnormal rhythm irregularly irregular Heart sounds: S1 normal heart sound present, S2 normal heart sound present and no murmurs GI: Auscultation: normal bowel sounds Skin: General skin exam: normal color Neuro: General: patient oriented x3 Cranial nerves: Yes Equal, round and reactive pupils present Extrem: General: normal to inspection Psych: Appearance: grossly normal Mental Status: mental status grossly normal Objective Data Vital Signs Vital Signs: Vital Signs - 24 hr 08/29/23 13:06 08/29/23 15:37 08/29/23 15:55 Temperature 38.2 C H 36.4 C L Pulse Rate 85 113 H 97 Respiratory Rate 18 14 22 H Blood Pressure 111/79 147/77 H 131/85 Pulse Oximetry 99 96 98 Oxygen Delivery Room Air Simple Face Mask Simple Face Mask Oxygen Flow Rate 8 8 08/29/23 16:10 08/29/23 16:25 08/29/23 16:39 Temperature Pulse Rate 99 102 H 101 H Respiratory Rate 16 18 20 Blood Pressure 139/92 H 135/85 125/84 Pulse Oximetry 95 99 95 Oxygen Delivery Room Air Room Air Room Air Oxygen Flow Rate 08/29/23 12:00 08/29/23 16:56 08/29/23 17:10 Temperature 36.4 C L 36.4 C L Pulse Rate 88 88 96 Respiratory Rate 16 16 Blood Pressure 131/90 128/80 Pulse Oximetry 96 98 Oxygen Delivery Oxygen Flow Rate 08/29/23 17:40 08/29/23 18:40 08/29/23 22:10 Temperature 36.4 C 36.7 C Pulse Rate 93 101 H 112 H Respiratory Rate 16 16 Blood Pressure 127/87 124/76 Pulse Oximetry 99 98 Oxygen Delivery Oxygen Flow Rate 08/29/23 20:00 08/29/23 20:00 08/29/23 23:28 Temperature 36.7 C Pulse Rate 91 128 H Respiratory Rate 16 Blood Pressure 125/95 H Pulse Oximetry 97 Oxygen Delivery Room Air Oxygen Flow Rate 08/29/23 23:29 08/29/23 21:25 08/29/23 20:10 Temperature Pulse Rate 126 H 132 H 118 H Respiratory Rate Blood Pressure Pulse Oximetry Oxygen Delivery Oxygen Flow Rate 08/29/23
--- NOTE | 2023-08-30 11:10 | P.PNAN_ITS ---
Anes - Prog Note Post-Op Date/Time: 08/30/23 11:10 Cardiovascular status: normal Respiratory status: normal Airway patency: baseline Mental status: baseline Post-Op hydration status: normal Vital Signs: Last Vital Signs Temp 98.0 F 08/30/23 08:00 Pulse 110 H 08/30/23 08:00 Resp 16 08/30/23 08:00 BP 115/82 08/30/23 08:00 Pulse Ox 95 08/30/23 08:00 O2 Del Method Room Air 08/30/23 08:00 O2 Flow Rate 8 08/29/23 15:55 Pain Score (VAS): 0 I/O: Intake & Output 08/29/23 08/30/23 08/30/23 23:59 07:59 15:59 Intake Total 620 400 Output Total 50 850 Balance 570 -450 Laboratory Tests 08/30/23 06:15 08/30/23 06:15 08/30/23 06:15 WBC 12.9 H RBC 4.40 Hgb 14.2 Hct 42.1 MCV 95.7 MCH 32.3 MCHC 33.7 RDW 12.4 Plt Count 197 MPV 10.7 H Immature Gran % (Auto) 0.4 Neut % (Auto) 80.5 H Lymph % (Auto) 10.7 L [place] % (Auto) 8.2 Eos % (Auto) 0.0 Baso % (Auto) 0.2 Lymph # (Auto) 1.38 [place] # (Auto) 1.1 H Eos # (Auto) 0.0 Baso # (Auto) 0.0 Abs Immat Gran (auto) 0.05 H Absolute Neuts (auto) 10.4 H Absolute Nucleated RBC 0.0 Nucleated RBC % 0.0 Sodium 134 L Potassium 3.6 Chloride 104 Carbon Dioxide 21 L Anion Gap 9 BUN 16 Creatinine 0.50 L Estim Creat Clear Calc 86 Estimated GFR > 60 Glucose 126 H Calcium 8.9 Magnesium 2.0 Post-procedural complaints: none Patient Feedback: Patient satisfied with anesthetic care.
--- NOTE | 2023-08-30 15:09 | PM.IMPN ---
Progress Note: A&P Assessment and Plan (1) Fracture of hip, left, closed: Qualifiers: Encounter type: initial encounter Qualified Code(s): S72.002A - Fracture of unspecified part of neck of left femur, initial encounter for closed fracture Code(s): S72.002A - Fracture of unspecified part of neck of left femur, initial encounter for closed fracture Status: Acute Assessment and Plan: 08/28 Initial hip x-ray showed some overlap of femoral head neck junction laterally on AP view.? Further investigated with CT showing subcapital fracture of the left femoral neck. No neurovascular concern. Orthopedist consulted.? Status post left hip pinning 08/29/2023. Postop care. Xarelto for DVT prophylaxis (2) Atrial fibrillation: Qualifiers: Atrial fibrillation type: unspecified Qualified Code(s): I48.91 - Unspecified atrial fibrillation Code(s): I48.91 - Unspecified atrial fibrillation Status: Acute Assessment and Plan: 08/28: Lengthy discussion with patient, approximately 30 minutes.? Poor understanding of diagnosis and etiology.? Initially refusing care stating she would exercise and improve her heart /cure her AFib that way, would like to see a computerized table cutter who supported that.? reiterated multiple times that although a well conditioned heart is a healthy choice, will not cure an electrical issue. ? Patient agreed to medications after risks discussed. initiate tele monitoring.? Given diltiazem 25 IVP with improvement: 120's -> 80's. will transition to metoprolol 25 mg BID PO. CHADS-VASc Score - 3. Given possibility of surgery for new hip fracture, will hold on anticoagulation. SCDs in interim. Add BNP and TSH to a.m. labs. consultation to cardiology. 08/29: Cardiology consulted and appreciate recs. Patient states she has had this in the past but is not on any treatment. Echo with normal hfpef. Patient was given an IV load of cardizem yesterday and changed to metoprolol - rate has metoprolol 25mg bid thus far. BNP mild elevation likely 2/2 to demand. TSH 0.5. CHADS-VASc 3, likely benefit from anticoagulation postoperatively. Consider starting eliquis tomorrow. 08/30/2023: Cardiology following. Xarelto echo unremarkable TSH normal. New diagnosis follow up with Cardiology in outpatient refused her medication Plan Diet: Rec. Heart Healthy after procedure. Activity: Per orthopedic recs. Analgesia: Currently fentanyl, norco, tylenol VTE prophylaxis: Xarelto at discharge currently on Lovenox Subjective Date/time seen: 08/30/23 15:09 Interval history: She underwent left hip pending. Work with therapy today. Pain control. Review of Systems Review of Systems: All systems reviewed & are unremarkable except as noted in HPI and below Exam Narrative: GENERAL APPEARANCE: Alert and oriented x3, to be in no acute distress. HEAD: normocephalic atraumatic EYES: PERRL, EOMI. Vision grossly intact. ENT: Hearing grossly intact, no nasal discharge NECK: Neck supple, trachea midline. CARDIAC: IRIR with normal rate. No murmurs, rubs, or gallops. No cyanosis or pallor. Extremities are warm and well perfused. LUNGS: Clear to auscultation without rales, rhonchi, wheezing or diminished breath sounds. Respirations even and unlabored. ABDOMEN: BS positive x 4 quadrants. Soft, nondistended, nontender. No guarding or rebound. PERIPHERAL VASCULAR: Peripheral pulses palpable. Normal perfusion, cap refill <2 seconds. No edema. NEURO: Follows commands. No focal deficits. SKIN: [place] without lesions or eruptions. PSYCH: Stable, no paranoia or delusional thinking. Objective Data Vital Signs Vital Signs: Vital Signs - 24 hr 08/29/23 15:37 08/29/23 15:55 08/29/23 16:10 Temperature 97.5 F L Pulse Rate 113 H 97 99 Respiratory Rate 14 22 H 16 Blood Pressure 147/77 H 131/85 139/92 H Pulse Oximetry 96 98 95 Oxygen Delivery Simple Face Mask Simple Face Mask Room Air Oxygen Flow Rate 8 8 08/29
[2023-08-31] VITALS (17 sets, daily range): BP systolic 110–122; BP diastolic 78–84; PULSE 90–148; RESP 18–20; TEMP 36.5–37.2; O2SAT 96–99
[2023-08-31] MEDS: METOPROLOL TARTRATE INJ 5 MG/5 ML VIAL IV PUSH (02:46)
--- NOTE | 2023-08-31 04:33 | PC.NURSE ---
Pt has been in Afib/Aflutter throughout this shift, with HR's anywhere from 90's to 140's. Provider was contacted and a 1x dose of IV metoprolol was given. Pt returned to the 90's briefly and went back to 120's-130's sustained. Provider notified again, and ordered another consult to cardiology and a 1x dose of cardizem.
[2023-08-31] MEDS: dilTIAZem HCl INJ 25 MG/5 ML VIAL 5 MG IV PUSH (04:53)
[2023-08-31 07:04] LABS: Basophils Percent Auto 0.3 % (0.2-1.2); Eosinophils Percent Auto 0.2 % (0-4.4); Hemoglobin 13.7 g/dL (12.0-15.0); Immature Granulocyte Absolute 0.03 K/mm3 (0.00-0.031); Immature Granulocyte Percent A 0.3 % (0-0.5); Lymphocytes Percent Auto 16.6 % (18.3-44.2); Mean Corpuscular HGB Conc 33.4 g/dl (32-36); Mean Corpuscular Hemoglobin 32.2 pg (26-34); Mean Corpuscular Volume 96.2 fl (80-100); Mean Platelet Volume 10.7 fl (7.4-10.4); Monocytes Absolute Auto 0.9 K/mm3 (0.1-0.6); Monocytes Percent Auto 9.7 % (2.6-8.5); Neutrophils Percent Auto 72.9 % (45.5-73.1); Platelet Count Result 197 k/mm3 (150-375); Red Blood Count 4.26 M/mm3 (4.2-5.4); Red Cell Distribution Width 12.4 % (11.5-14.5); White Blood Count 9.6 K/mm3 (4.5-10.0)
[2023-08-31 07:15] LABS: Alanine Aminotransferase 17 U/L (6-35); Albumin Level 3.6 g/dL (3.5-5.1); Alkaline Phosphatase 64 U/L (38-126); Anion Gap 7 mmol/L (8-16); Aspartate Amino Transferase 33 U/L (14-36); Bilirubin,Total 1.2 mg/dL (0.2-1.3); Blood Urea Nitrogen 17 mg/dL (7-17); Calcium 8.6 mg/dL (8.4-10.2); Carbon Dioxide 24 mmol/L (22-30); Chloride 104 mmol/L (98-107); Estimated CRCL calculation 73 ml/min; Estimated Glomerular Filt Rate > 60; Glucose 107 mg/dL (65-110); Potassium 3.5 mmol/L (3.4-5.0); Sodium 135 mmol/L (137-145)
[2023-08-31] MEDS: METOPROLOL SUCCINATE EXT REL 100 MG TABCR PO (10:36)
[2023-08-31] MEDS: polyethylene glycoL 3350 17 GM POWD.PACK PO (10:37)
[2023-08-31] MEDS: ENOXAPARIN 40 MG/0.4 ML SYRINGE SUB-Q (10:37)
--- NOTE | 2023-08-31 12:43 | PM.PNCARD ---
Progress Note: A&P Assessment and Plan (1) Atrial fibrillation: Qualifiers: Atrial fibrillation type: persistent (not longstanding) Qualified Code(s): I48.19 - Other persistent atrial fibrillation Code(s): I48.91 - Unspecified atrial fibrillation Status: Acute Assessment and Plan: Presents after sustaining ground level fall and has been found to be in atrial fibrillation. Chronicity is unknown, but history suggestive of possible PAF. Recommend continuation of rate control strategy for now. Start DOAC when okay with ortho surgery. Recommend xarelto 20mg daily as this is a once daily medication and she is hesitant to take medication. Echo unremarkable, normal LVSF, no significant valve pathology. She does have moderate FRAN. Would continue telemetry for now to monitor heart rate control in atrial fibrillation. Can consider outpatient DCCV in 4-6 weeks. Will arrange outpatient office follow up Heart rate suboptimally controlled unacceptably tachycardic. Advised increasing Toprol XL to 100 mg daily for improved heart rate control. Discussed at length rationale for increasing Toprol XL and with uncontrolled ventricular response. Discussed potential side effects including bradycardia, hypertension, dizziness or fatigue and report any concerns immediately. Discussed once again the importance of anticoagulation for embolic stroke risk reduction. CHADS2 Vasc score 3 (age 73, female) therefore systemic anticoagulation advised. Renal function and electrolytes stable. (2) Fracture of hip, left, closed: Qualifiers: Encounter type: initial encounter Qualified Code(s): S72.002A - Fracture of unspecified part of neck of left femur, initial encounter for closed fracture Code(s): S72.002A - Fracture of unspecified part of neck of left femur, initial encounter for closed fracture Status: Acute Assessment and Plan: Doing well postop. Management per Orthopedic surgery primary service. H&H stable. PT OT. Ambulate with caution. Subjective Date/time seen: Date of service: 08/31/23 12:43 Interval history: Cardiology follow up for atrial fibrillation Date of service 08/31/2023: We have been asked see this patient again do did persistent tachycardia with heart rates up to 130s on telemetry in atrial fibrillation. Patient asymptomatic otherwise. She has yet to receive Toprol XL this morning, however, despite this her heart rate has been elevated in the latter part of the day and early mornings. Patient denies shortness of breath, chest pain. No specific complaints at present. Review of Systems Review of Systems: Remainder of the review of systems is otherwise negative aside from that noted in the HPI. All systems reviewed & are unremarkable except as noted in HPI and below Constitutional: Constitutional: Reports as per HPI and Reports no additional constitutional complaints Eyes: Eyes: Reports as per HPI and Reports no additional eye complaints ENT: Reports system reviewed and no additional complaints, except as documented and Reports as per HPI Cardiovascular: Cardiovascular: Reports as per HPI and Reports no additional cardiovascular complaints Respiratory: Respiratory: Reports as per HPI and Reports no additional respiratory complaints Gastrointestinal: Gastrointestinal: Reports as per HPI and Reports no additional gastrointestinal complaints Genitourinary: Genitourinary: Reports as per HPI Musculoskeletal: Musculoskeletal: Reports no additional musculoskeletal complaints and Reports as per HPI Integumentary/Breasts: Skin/Breast: Reports system reviewed and no additional complaints, except as docu and Reports as per HPI Neurologic: Reports system reviewed and no additional complaints, except as documented and Reports as per HPI Psychiatric: Psychiatric: Reports no additional psychiatric complaints and Reports as per HPI Endocrine: Endocrine: Reports no additi
--- NOTE | 2023-08-31 12:44 | PM.PNORT ---
Progress Note: A&P Assessment and Plan (1) Fracture of hip, left, closed: Qualifiers: Encounter type: initial encounter Qualified Code(s): S72.002A - Fracture of unspecified part of neck of left femur, initial encounter for closed fracture Code(s): S72.002A - Fracture of unspecified part of neck of left femur, initial encounter for closed fracture Status: Acute (2) Atrial fibrillation: Qualifiers: Atrial fibrillation type: persistent (not longstanding) Qualified Code(s): I48.19 - Other persistent atrial fibrillation Code(s): I48.91 - Unspecified atrial fibrillation Status: Acute Plan POD 2 PERC PINNING LEFT HIP. CONTINUE PT. SHE WILL MOST LIKELY REQUIRE SNF/REHAB PLACEMENT DUE TO HOME SITUATION AND AT LEAST 6 WEEKS NON WEIGHT BEARING. Subjective Subjective Date/Time Seen: 08/31/23 12:44 Interval history: POD 2 DOING WELL, NO CALF PAIN Exam Extrem: Other: VSS AFEBRILE DRESSING DRY [place] INTACT NEG HOMANS SIGN, THIGH AND CALF SOFT NON TENDER Objective Data Vital Signs Vital Signs: Vital Signs - 24 hr 08/30/23 14:00 08/30/23 16:00 08/30/23 20:00 Temperature 36.8 C Pulse Rate 100 101 H Respiratory Rate 16 Blood Pressure 115/71 Pulse Oximetry 99 Oxygen Delivery Room Air 08/30/23 21:31 08/30/23 20:00 08/31/23 02:14 Temperature 36.8 C Pulse Rate 106 H 94 129 H Respiratory Rate 20 Blood Pressure 141/98 H Pulse Oximetry 98 Oxygen Delivery 08/31/23 02:36 08/31/23 02:46 08/31/23 03:10 Temperature Pulse Rate 132 H 122 H 102 H Respiratory Rate Blood Pressure Pulse Oximetry Oxygen Delivery 08/31/23 00:00 08/31/23 03:51 08/31/23 04:09 Temperature 36.8 C Pulse Rate 96 148 H 93 Respiratory Rate 19 Blood Pressure 121/83 Pulse Oximetry 96 Oxygen Delivery 08/31/23 04:50 08/31/23 04:00 08/31/23 05:26 Temperature Pulse Rate 118 H 111 H 139 H Respiratory Rate Blood Pressure Pulse Oximetry Oxygen Delivery 08/31/23 09:40 08/31/23 10:36 Temperature Pulse Rate 116 H Respiratory Rate Blood Pressure Pulse Oximetry Oxygen Delivery Room Air Intake/Output Intake/Output: Intake & Output 08/28/23 08/29/23 08/30/23 08/31/23 23:59 23:59 23:59 23:59 Intake Total 415 792 5543 175 Output Total 50 1600 200 Balance 240 335 -812 -92 Meds/Results Medications: Active Medications Generic Name Dose Route Start Last Admin Trade Name Freq PRN Reason Stop Dose Admin Acetaminophen 1,000 mg 08/29/23 16:41 Acetaminophen 500 Mg Tablet PO Q8H PRN fever or pain 1-3 Hydrocodone Bitart/Acetaminophen 1 tab 08/28/23 23:05 Hydrocodone/Acetaminophen (*Crx) 5-325 Mg Tablet PO Q4H PRN Moderate Pain (4-6) Hydrocodone Bitart/Acetaminophen 1 tab 08/29/23 16:41 Hydrocodone/Acetaminophen (*Crx) 7.5-325 Mg Tablet PO Q3H PRN Pain Rated 4-6 Hydrocodone Bitart/Acetaminophen 2 tab 08/29/23 16:41 Hydrocodone/Acetaminophen (*Crx) 7.5-325 Mg Tablet PO Q6H PRN Pain Rated 7-10 Bisacodyl 5 mg 08/28/23 23:05 Bisacodyl 5 Mg Tablet Ec PO DAILY PRN Constipation Diazepam 5 mg 08/29/23 16:41 Diazepam (*Crx) 5 Mg Tablet PO Q8H PRN Muscle Spasm Docusate Sodium 100 mg 08/29/23 09:00 08/31/23 10:51 Docusate Sodium 100 Mg Capsule PO Not Given BID DANE Enoxaparin Sodium 40 mg 08/30/23 09:00 08/31/23 10:37 Enoxaparin 40 Mg/0.4 Ml Syringe SUB-Q 40 mg DAILY DANE Administration Famotidine 20 mg 08/29/23 21:00 08/31/23 10:51 Famotidine 20 Mg Tablet PO Not Given Q12HR DANE Hydroxyzine Pamoate 50 mg 08/29/23 16:41 Hydroxyzine Pamoate 25 Mg Capsule PO Q4H PRN Itching Metoprolol Succinate 100 mg 08/31/23 10:10 08/31/23 10:36 Metoprolol Succinate Ext Rel 100 Mg Tabcr PO 100 mg QAM DANE Administration Morphine Sulfate 2 mg 08/28/23 12:51 [place]
--- NOTE | 2023-08-31 14:27 | PM.IMPN ---
Progress Note: A&P Assessment and Plan (1) Fracture of hip, left, closed: Qualifiers: Encounter type: initial encounter Qualified Code(s): S72.002A - Fracture of unspecified part of neck of left femur, initial encounter for closed fracture Code(s): S72.002A - Fracture of unspecified part of neck of left femur, initial encounter for closed fracture Status: Acute Assessment and Plan: 08/28 Initial hip x-ray showed some overlap of femoral head neck junction laterally on AP view.? Further investigated with CT showing subcapital fracture of the left femoral neck. No neurovascular concern. Orthopedist consulted.? Status post left hip pinning 08/29/2023. Postop care. Xarelto for DVT prophylaxis (2) Atrial fibrillation: Qualifiers: Atrial fibrillation type: persistent (not longstanding) Qualified Code(s): I48.19 - Other persistent atrial fibrillation Code(s): I48.91 - Unspecified atrial fibrillation Status: Acute Assessment and Plan: 08/28: Lengthy discussion with patient, approximately 30 minutes.? Poor understanding of diagnosis and etiology.? Initially refusing care stating she would exercise and improve her heart /cure her AFib that way, would like to see a ict developer who supported that.? reiterated multiple times that although a well conditioned heart is a healthy choice, will not cure an electrical issue. ? Patient agreed to medications after risks discussed. initiate tele monitoring.? Given diltiazem 25 IVP with improvement: 120's -> 80's. will transition to metoprolol 25 mg BID PO. CHADS-VASc Score - 3. Given possibility of surgery for new hip fracture, will hold on anticoagulation. SCDs in interim. Add BNP and TSH to a.m. labs. consultation to cardiology. 08/29: Cardiology consulted and appreciate recs. Patient states she has had this in the past but is not on any treatment. Echo with normal hfpef. Patient was given an IV load of cardizem yesterday and changed to metoprolol - rate has metoprolol 25mg bid thus far. BNP mild elevation likely 2/2 to demand. TSH 0.5. CHADS-VASc 3, likely benefit from anticoagulation postoperatively. Consider starting eliquis tomorrow. 08/30/2023: Cardiology following. Xarelto echo unremarkable TSH normal. New diagnosis follow up with Cardiology in outpatient refused her medication Metoprolol dose adjusted. Will start Xarelto from tonight Plan Diet: Rec. Heart Healthy after procedure. Activity: Per orthopedic recs. Analgesia: Currently fentanyl, norco, tylenol VTE prophylaxis: Lovenox switched to Xarelto Subjective Date/time seen: 08/31/23 14:27 Interval history: She underwent left hip pending. Work with therapy today. Pain control. 08/31/2023: Overnight events noted. Cardiology has been reconsulted. Metoprolol dose has been increased. Denies any pain. Review of Systems Review of Systems: All systems reviewed & are unremarkable except as noted in HPI and below Exam Narrative: GENERAL APPEARANCE: Alert and oriented x3, to be in no acute distress. HEAD: normocephalic atraumatic EYES: PERRL, EOMI. Vision grossly intact. ENT: Hearing grossly intact, no nasal discharge NECK: Neck supple, trachea midline. CARDIAC: IRIR with mild RVR No murmurs, rubs, or gallops. No cyanosis or pallor. Extremities are warm and well perfused. LUNGS: Clear to auscultation without rales, rhonchi, wheezing or diminished breath sounds. Respirations even and unlabored. ABDOMEN: BS positive x 4 quadrants. Soft, nondistended, nontender. No guarding or rebound. PERIPHERAL VASCULAR: Peripheral pulses palpable. Normal perfusion, cap refill <2 seconds. No edema. NEURO: Follows commands. No focal deficits. SKIN: [place] without lesions or eruptions. PSYCH: Stable, no paranoia or delusional thinking. Objective Data Vital Signs Vital Signs: Vital Signs - 24 hr 08/30/23 16:00 08/30/23 20:00 08/30/23 21:31 Temperature 98.3 F Pulse Rate 101 H 106
[2023-08-31] MEDS: RIVAROXABAN 20 MG TABLET PO (18:46)
[2023-09-01] VITALS (10 sets, daily range): BP systolic 99–137; BP diastolic 73–88; PULSE 65–107; RESP 16–20; TEMP 36.2–36.7; O2SAT 98–99
[2023-09-01 07:21] LABS: Basophils Percent Auto 0.4 % (0.2-1.2); Eosinophils Absolute Auto 0.1 K/mm3 (0-0.3); Eosinophils Percent Auto 0.7 % (0-4.4); Hemoglobin 13.2 g/dL (12.0-15.0); Immature Granulocyte Absolute 0.02 K/mm3 (0.00-0.031); Immature Granulocyte Percent A 0.3 % (0-0.5); Lymphocytes Absolute Auto 1.78 K/mm3 (0.9-3.2); Lymphocytes Percent Auto 24.4 % (18.3-44.2); Mean Corpuscular Hemoglobin 31.9 pg (26-34); Mean Corpuscular Volume 96.6 fl (80-100); Monocytes Absolute Auto 0.7 K/mm3 (0.1-0.6); Monocytes Percent Auto 9.3 % (2.6-8.5); Neutrophils Absolute Auto 4.8 K/mm3 (1.3-6.7); Neutrophils Percent Auto 64.9 % (45.5-73.1); Platelet Count Result 207 k/mm3 (150-375); Red Blood Count 4.14 M/mm3 (4.2-5.4); Red Cell Distribution Width 12.3 % (11.5-14.5); White Blood Count 7.3 K/mm3 (4.5-10.0)
[2023-09-01 07:32] LABS: Alanine Aminotransferase 17 U/L (6-35); Albumin Level 3.6 g/dL (3.5-5.1); Alkaline Phosphatase 61 U/L (38-126); Anion Gap 5 mmol/L (8-16); Aspartate Amino Transferase 32 U/L (14-36); Bilirubin,Total 1.1 mg/dL (0.2-1.3); Blood Urea Nitrogen 17 mg/dL (7-17); Calcium 8.6 mg/dL (8.4-10.2); Carbon Dioxide 24 mmol/L (22-30); Chloride 105 mmol/L (98-107); Estimated CRCL calculation 86 ml/min; Estimated Glomerular Filt Rate > 60; Glucose 104 mg/dL (65-110); Potassium 3.6 mmol/L (3.4-5.0); Sodium 134 mmol/L (137-145)
[2023-09-01] MEDS: METOPROLOL SUCCINATE EXT REL 100 MG TABCR PO (09:53)
--- NOTE | 2023-09-01 11:15 | PM.PNORT ---
Progress Note: A&P Assessment and Plan (1) Fracture of hip, left, closed: Qualifiers: Encounter type: initial encounter Qualified Code(s): S72.002A - Fracture of unspecified part of neck of left femur, initial encounter for closed fracture Code(s): S72.002A - Fracture of unspecified part of neck of left femur, initial encounter for closed fracture Status: Acute Assessment and Plan: POD 3 DOING WELL. SHE WILL REQUIRE SOME SORT OF REHAB POST DISCHARGE. 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 SHE IS STABLE PER ORTHO STANDPOINT. SHE WILL F/U WITH ORTHO IN 6 WEEKS. (2) Atrial fibrillation: Qualifiers: Atrial fibrillation type: persistent (not longstanding) Qualified Code(s): I48.19 - Other persistent atrial fibrillation Code(s): I48.91 - Unspecified atrial fibrillation Status: Acute Subjective Subjective Date/Time Seen: 09/01/23 11:15 Interval history: POD 3 DOING WELL. MINIMAL PAIN, NO CALF PAIN. Exam Extrem: Other: VSS AFEBRILE DRESSING DRY NV INTACT NEG HOMANS SIGN, CALF AND THIGH SOFT NON TENDER Objective Data Vital Signs Vital Signs: Vital Signs - 24 hr 08/31/23 13:02 08/31/23 14:00 08/31/23 12:00 Temperature 37.2 C Pulse Rate 95 95 Respiratory Rate 20 Blood Pressure 122/84 Pulse Oximetry 99 Oxygen Delivery Room Air 08/31/23 16:01 08/31/23 22:00 08/31/23 20:00 Temperature 36.5 C Pulse Rate 97 100 Respiratory Rate 18 Blood Pressure 110/78 Pulse Oximetry 98 Oxygen Delivery Room Air 08/31/23 20:00 09/01/23 00:00 09/01/23 04:00 Temperature Pulse Rate 90 99 89 Respiratory Rate Blood Pressure Pulse Oximetry Oxygen Delivery 09/01/23 06:00 09/01/23 09:15 09/01/23 09:53 Temperature 36.7 C Pulse Rate 97 107 H Respiratory Rate 20 Blood Pressure 114/73 Pulse Oximetry 98 Oxygen Delivery Room Air Intake/Output Intake/Output: Intake & Output 08/29/23 08/30/23 08/31/23 09/01/23 23:59 23:59 23:59 23:59 Intake Total 620 1044 1255 400 Output Total 50 1600 850 Balance 570 -556 405 400 Meds/Results Medications: Active Medications Generic Name Dose Route Start Last Admin Trade Name Freq PRN Reason Stop Dose Admin Acetaminophen 1,000 mg 08/29/23 16:41 Acetaminophen 500 Mg Tablet PO Q8H PRN fever or pain 1-3 Hydrocodone Bitart/Acetaminophen 1 tab 08/28/23 23:05 Hydrocodone/Acetaminophen (*Crx) 5-325 Mg Tablet PO Q4H PRN Moderate Pain (4-6) Hydrocodone Bitart/Acetaminophen 1 tab 08/29/23 16:41 Hydrocodone/Acetaminophen (*Crx) 7.5-325 Mg Tablet PO Q3H PRN Pain Rated 4-6 Hydrocodone Bitart/Acetaminophen 2 tab 08/29/23 16:41 Hydrocodone/Acetaminophen (*Crx) 7.5-325 Mg Tablet PO Q6H PRN Pain Rated 7-10 Bisacodyl 5 mg 08/28/23 23:05 Bisacodyl 5 Mg Tablet Ec PO DAILY PRN Constipation Diazepam 5 mg 08/29/23 16:41 Diazepam (*Crx) 5 Mg Tablet PO Q8H PRN Muscle Spasm Docusate Sodium 100 mg 08/29/23 09:00 09/01/23 09:55 Docusate Sodium 100 Mg Capsule PO Not Given BID COUNTS INCLUDE 234 BEDS AT THE [facility] Famotidine 20 mg 08/29/23 21:00 09/01/23 09:55 Famotidine 20 Mg Tablet PO Not Given Q12HR COUNTS INCLUDE 234 BEDS AT THE [facility] Hydroxyzine Pamoate 50 mg 08/29/23 16:41 Hydroxyzine Pamoate 25 Mg Capsule PO Q4H PRN Itching Metoprolol Succinate 100 mg 08/31/23 10:10 09/01/23 09:53 Metoprolol Succinate Ext Rel 100 Mg Tabcr PO 100 mg QAM COUNTS INCLUDE 234 BEDS AT THE [facility] Administration Morphine Sulfate 2 mg 08/28/23 12:51 Morphine Sulfate (*Crx) 4 Mg/Ml Inj IV PUSH Q2H PRN Pain Rated 7-10 Naloxone HCl 0.1 mg 08/29/23 16:41 Naloxone Hcl 0.4 Mg/Ml Vial IV PUSH Q2M PRN Opiate Reversal Ondansetron HCl 4 mg 08/28/23 12:51 Ondansetron Inj 4 Mg/2 Ml Vial IV PUSH Q4H PRN Nausea Polyethylene Glycol 17 gm 08/30/23 09:00 09/01/23 09:55 Polyethylene G
--- NOTE | 2023-09-01 14:50 | PM.IMPN ---
Progress Note: A&P Assessment and Plan (1) Fracture of hip, left, closed: Qualifiers: Encounter type: initial encounter Qualified Code(s): S72.002A - Fracture of unspecified part of neck of left femur, initial encounter for closed fracture Code(s): S72.002A - Fracture of unspecified part of neck of left femur, initial encounter for closed fracture Status: Acute Assessment and Plan: 08/28 Initial hip x-ray showed some overlap of femoral head neck junction laterally on AP view.? Further investigated with CT showing subcapital fracture of the left femoral neck. No neurovascular concern. Orthopedist consulted.? Status post left hip pinning 08/29/2023. Postop care. Xarelto for DVT prophylaxis (2) Atrial fibrillation: Qualifiers: Atrial fibrillation type: persistent (not longstanding) Qualified Code(s): I48.19 - Other persistent atrial fibrillation Code(s): I48.91 - Unspecified atrial fibrillation Status: Acute Assessment and Plan: 08/28: Lengthy discussion with patient, approximately 30 minutes.? Poor understanding of diagnosis and etiology.? Initially refusing care stating she would exercise and improve her heart /cure her AFib that way, would like to see a corrosion technician who supported that.? reiterated multiple times that although a well conditioned heart is a healthy choice, will not cure an electrical issue. ? Patient agreed to medications after risks discussed. initiate tele monitoring.? Given diltiazem 25 IVP with improvement: 120's -> 80's. will transition to metoprolol 25 mg BID PO. CHADS-VASc Score - 3. Given possibility of surgery for new hip fracture, will hold on anticoagulation. SCDs in interim. Add BNP and TSH to a.m. labs. consultation to cardiology. 08/29: Cardiology consulted and appreciate recs. Patient states she has had this in the past but is not on any treatment. Echo with normal hfpef. Patient was given an IV load of cardizem yesterday and changed to metoprolol - rate has metoprolol 25mg bid thus far. BNP mild elevation likely 2/2 to demand. TSH 0.5. CHADS-VASc 3, likely benefit from anticoagulation postoperatively. Consider starting eliquis tomorrow. 08/30/2023: Cardiology following. Xarelto echo unremarkable TSH normal. New diagnosis follow up with Cardiology in outpatient refused her medication Metoprolol dose adjusted. Started on Xarelto Plan Diet: Rec. Heart Healthy after procedure. Activity: Per orthopedic recs. Analgesia: Currently fentanyl, norco, tylenol VTE prophylaxis: Lovenox switched to Xarelto Subjective Date/time seen: 09/01/23 14:50 Interval history: She underwent left hip pending. Work with therapy today. Pain control. 08/31/2023: Overnight events noted. Cardiology has been reconsulted. Metoprolol dose has been increased. Denies any pain. 09/01/2023: No overnight events. Heart rate much better. Denies any new complaints Review of Systems Review of Systems: All systems reviewed & are unremarkable except as noted in HPI and below Exam Narrative: GENERAL APPEARANCE: Alert and oriented x3, to be in no acute distress. HEAD: normocephalic atraumatic EYES: PERRL, EOMI. Vision grossly intact. ENT: Hearing grossly intact, no nasal discharge NECK: Neck supple, trachea midline. CARDIAC: IRIR with mild RVR No murmurs, rubs, or gallops. No cyanosis or pallor. Extremities are warm and well perfused. LUNGS: Clear to auscultation without rales, rhonchi, wheezing or diminished breath sounds. Respirations even and unlabored. ABDOMEN: BS positive x 4 quadrants. Soft, nondistended, nontender. No guarding or rebound. PERIPHERAL VASCULAR: Peripheral pulses palpable. Normal perfusion, cap refill <2 seconds. No edema. NEURO: Follows commands. No focal deficits. SKIN: [place] without lesions or eruptions. PSYCH: Stable, no paranoia or delusional thinking. Objective Data Vital Signs Vital Signs: Vital Signs - 24 hr 08/31/23 16:01 1
[2023-09-01] MEDS: RIVAROXABAN 20 MG TABLET PO (17:41)
[2023-09-02] VITALS (11 sets, daily range): BP systolic 102–125; BP diastolic 73–87; PULSE 89–110; RESP 14–18; TEMP 36.8–37; O2SAT 96–100
[2023-09-02] MEDS: METOPROLOL SUCCINATE EXT REL 100 MG TABCR PO (09:08)
--- NOTE | 2023-09-02 11:29 | PM.IMPN ---
Progress Note: A&P Assessment and Plan (1) Fracture of hip, left, closed: Qualifiers: Encounter type: initial encounter Qualified Code(s): S72.002A - Fracture of unspecified part of neck of left femur, initial encounter for closed fracture Code(s): S72.002A - Fracture of unspecified part of neck of left femur, initial encounter for closed fracture Status: Acute Assessment and Plan: 08/28 Initial hip x-ray showed some overlap of femoral head neck junction laterally on AP view.? Further investigated with CT showing subcapital fracture of the left femoral neck. No neurovascular concern. Orthopedist consulted.? Status post left hip pinning 08/29/2023. Postop care. Xarelto for DVT prophylaxis Left knee swelling will repeat x-ray likely some soft tissue injury/tendon injury to left knee (2) Atrial fibrillation: Qualifiers: Atrial fibrillation type: persistent (not longstanding) Qualified Code(s): I48.19 - Other persistent atrial fibrillation Code(s): I48.91 - Unspecified atrial fibrillation Status: Acute Assessment and Plan: 08/28: Lengthy discussion with patient, approximately 30 minutes.? Poor understanding of diagnosis and etiology.? Initially refusing care stating she would exercise and improve her heart /cure her AFib that way, would like to see a security consultant who supported that.? reiterated multiple times that although a well conditioned heart is a healthy choice, will not cure an electrical issue. ? Patient agreed to medications after risks discussed. initiate tele monitoring.? Given diltiazem 25 IVP with improvement: 120's -> 80's. will transition to metoprolol 25 mg BID PO. CHADS-VASc Score - 3. Given possibility of surgery for new hip fracture, will hold on anticoagulation. SCDs in interim. Add BNP and TSH to a.m. labs. consultation to cardiology. 08/29: Cardiology consulted and appreciate recs. Patient states she has had this in the past but is not on any treatment. Echo with normal hfpef. Patient was given an IV load of cardizem yesterday and changed to metoprolol - rate has metoprolol 25mg bid thus far. BNP mild elevation likely 2/2 to demand. TSH 0.5. CHADS-VASc 3, likely benefit from anticoagulation postoperatively. Consider starting eliquis tomorrow. 08/30/2023: Cardiology following. Xarelto echo unremarkable TSH normal. New diagnosis follow up with Cardiology in outpatient refused her medication Metoprolol dose adjusted. Started on Xarelto Plan Diet: Rec. Heart Healthy after procedure. Activity: Per orthopedic recs. Analgesia: Currently fentanyl, norco, tylenol VTE prophylaxis: Lovenox switched to Xarelto Subjective Date/time seen: 09/02/23 11:29 Interval history: She underwent left hip pending. Work with therapy today. Pain control. 08/31/2023: Overnight events noted. Cardiology has been reconsulted. Metoprolol dose has been increased. Denies any pain. 09/01/2023: No overnight events. Heart rate much better. Denies any new complaints 09/02/2023: Reports left knee pain and swelling. Denies any other complaints heart rate is better. Review of Systems Review of Systems: All systems reviewed & are unremarkable except as noted in HPI and below Exam Narrative: GENERAL APPEARANCE: Alert and oriented x3, to be in no acute distress. HEAD: normocephalic atraumatic EYES: PERRL, EOMI. Vision grossly intact. ENT: Hearing grossly intact, no nasal discharge NECK: Neck supple, trachea midline. CARDIAC: IRIR with mild RVR No murmurs, rubs, or gallops. No cyanosis or pallor. Extremities are warm and well perfused. LUNGS: Clear to auscultation without rales, rhonchi, wheezing or diminished breath sounds. Respirations even and unlabored. ABDOMEN: BS positive x 4 quadrants. Soft, nondistended, nontender. No guarding or rebound. PERIPHERAL VASCULAR: Peripheral pulses palpable. Normal perfusion, cap refill <2 seconds. No edema. NEURO: Follows commands. No f
[2023-09-02] MEDS: RIVAROXABAN 20 MG TABLET PO (16:50)
[2023-09-03] VITALS (9 sets, daily range): BP systolic 96–119; BP diastolic 58–78; PULSE 86–105; RESP 16; TEMP 36.2–37; O2SAT 97–100
--- NOTE | 2023-09-03 08:57 | PM.PNORT ---
Progress Note: A&P Assessment and Plan (1) Fracture of hip, left, closed: Qualifiers: Encounter type: initial encounter Qualified Code(s): S72.002A - Fracture of unspecified part of neck of left femur, initial encounter for closed fracture Code(s): S72.002A - Fracture of unspecified part of neck of left femur, initial encounter for closed fracture Status: Acute Assessment and Plan: POD #5: PERCUTANEOUS PINNING LEFT FEMORAL NECK FRACTURE Continue PT/OT. TTWB. Walker. HIGH FALL RISK. Continue pain control. Ice hip. Protect skin. DVT prophylaxis with Lovenox but transition to Xarelto upon discharge.. SCDs. Incentive Spirometry Use reviewed. Monitor Dressing. Change prior to discharge. Bowel Regimen. Dispo: [facility] vs. SNF pending progress with PT/OT (2) Degenerative joint disease of knee: Qualifiers: Laterality: left Osteoarthritis type: primary Qualified Code(s): M17.12 - Unilateral primary osteoarthritis, left knee Code(s): M17.9 - Osteoarthritis of knee, unspecified Status: Acute Assessment and Plan: New radiographs obtained of the left knee. Radiographs reveal severe DJD as well as moderate left knee joint effusion. No signs of infection on exam. AROM/PROM without severe pain. Extension limited due to effusion. Condition, nature, etiology and course of natural history discussed. Conservative and operative treatment options reviewed as well as the risks and benefits of both. Recommended aspiration of the left knee joint at this time. Aspiration performed, tolerated well. No injection performed given recent left hip fracture. Patient fit with CHERYL wrap. Recommend ice. Will follow in the outpatient orthopedic clinic. (3) Effusion of knee joint: Qualifiers: Laterality: left Qualified Code(s): M25.462 - Effusion, left knee Code(s): M25.469 - Effusion, unspecified knee Status: Acute Assessment and Plan: Moderate left knee joint effusion noted on exam. Discussed condition, nature, etiology and course of natural history. Conservative treatment options reviewed. Recommended aspiration prior to injection. Aspiration performed under sterile conditions. 65 mL of serosanguineous fluids aspirated. No signs of infection. Joint without erythema. NO injection performed. Recommended use of neoprene knee sleeve. Subjective Subjective Date/Time Seen: 09/03/23 08:57 Post Op day: 5 Interval history: POD #5: PERCUTANEOUS PINNING LEFT FEMORAL NECK FRACTURE Patient awake/alert. Sitting up in bed. Requesting to go to a Winter Concert to sing at [employer] this evening. Explained that that is unrealistic given current hospitalization. Left knee swelling, new radiographs obtained yesterday. Patient does complain of some left knee pain. Large knee joint effusion. Review of Systems Constitutional: Constitutional: Denies chills, Denies fatigue, Denies fever(s), Denies night sweats and Denies weakness Cardiovascular: Cardiovascular: Denies chest pain, Denies lightheadedness, Denies palpitations and Denies dyspnea Respiratory: Respiratory: Denies cough, Denies dyspnea and Denies wheezing Gastrointestinal: Gastrointestinal: Denies abdominal pain, Denies diarrhea, Denies nausea and Denies vomiting Musculoskeletal: Musculoskeletal: Reports arthralgias (left hip ), Reports joint swelling (left hip ) and Denies numbness Neurologic: Denies numbness and Denies weakness Endocrine: Endocrine: Denies fatigue and Denies palpitations Allergic/Immunologic: Allergic/Immunologic: Denies wheezing Exam Const: General: comfortable and no acute distress Orientation/consciousness: patient oriented x3 Limitations: no limitations Resp: Effort & Inspection: normal respiratory effort Cardio: Rate: regular rate Rhythm: regular rhythm GI: Inspection: non-distended Skin: General skin exam: normal color and wounds noted (incision left hip C/D/I ) Wounds: wounds noted (incis
--- NOTE | 2023-09-03 08:58 | WPDPROCEDUR ---
Procedures Joint Aspiration/Injection Joint Asp./Inject. 1: Time out performed: Yes (Consent obtained ) Side of body: left Joint aspirated: knee Ultrasound guidance: No Skin prep: Povidone-Iodine1% Local anesthesia used: lidocaine 1% Amount of anesthesia used (ml): 5 Needle size used: 22G Fluid obtained: clear Total fluid obtained (ml): 65 Medication injected, if any: other (none ) Patient tolerated procedure: well Complications: none Additional comments: The risks of injection were reviewed including but not limited to skin color changes, atrophy of the soft tissue, tendon or soft tissue rupture, joint degeneration, hyper inflammatory response, allergic reaction, continued pain or dysfunction. Specific risks of the procedure including deep infection or soft tissue rupture or recurrence of symptoms reviewed. No guarantees were offered. The patient understands the need for possible further treatment.
[2023-09-03] MEDS: METOPROLOL SUCCINATE EXT REL 100 MG TABCR PO (09:29)
--- NOTE | 2023-09-03 13:46 | PM.IMPN ---
Progress Note: A&P Assessment and Plan (1) Fracture of hip, left, closed: Qualifiers: Encounter type: initial encounter Qualified Code(s): S72.002A - Fracture of unspecified part of neck of left femur, initial encounter for closed fracture Code(s): S72.002A - Fracture of unspecified part of neck of left femur, initial encounter for closed fracture Status: Acute Assessment and Plan: 08/28 Initial hip x-ray showed some overlap of femoral head neck junction laterally on AP view.? Further investigated with CT showing subcapital fracture of the left femoral neck. No neurovascular concern. Orthopedist consulted.? Status post left hip pinning 08/29/2023. Postop care. Xarelto for DVT prophylaxis Left knee swelling x-ray with large effusion. Orthopedic tap the knee. With aspiration of 65 cc of serosanguineous fluid. Continue conservative management (2) Atrial fibrillation: Qualifiers: Atrial fibrillation type: persistent (not longstanding) Qualified Code(s): I48.19 - Other persistent atrial fibrillation Code(s): I48.91 - Unspecified atrial fibrillation Status: Acute Assessment and Plan: 08/28: Lengthy discussion with patient, approximately 30 minutes.? Poor understanding of diagnosis and etiology.? Initially refusing care stating she would exercise and improve her heart /cure her AFib that way, would like to see a rotary rock drilling machine operator who supported that.? reiterated multiple times that although a well conditioned heart is a healthy choice, will not cure an electrical issue. ? Patient agreed to medications after risks discussed. initiate tele monitoring.? Given diltiazem 25 IVP with improvement: 120's -> 80's. will transition to metoprolol 25 mg BID PO. CHADS-VASc Score - 3. Given possibility of surgery for new hip fracture, will hold on anticoagulation. SCDs in interim. Add BNP and TSH to a.m. labs. consultation to cardiology. 08/29: Cardiology consulted and appreciate recs. Patient states she has had this in the past but is not on any treatment. Echo with normal hfpef. Patient was given an IV load of cardizem yesterday and changed to metoprolol - rate has metoprolol 25mg bid thus far. BNP mild elevation likely 2/2 to demand. TSH 0.5. CHADS-VASc 3, likely benefit from anticoagulation postoperatively. Consider starting eliquis tomorrow. 08/30/2023: Cardiology following. Xarelto echo unremarkable TSH normal. New diagnosis follow up with Cardiology in outpatient refused her medication Metoprolol dose adjusted. Started on Xarelto Plan Diet: Rec. Heart Healthy after procedure. Activity: Per orthopedic recs. Analgesia: Currently fentanyl, norco, tylenol VTE prophylaxis: Lovenox switched to Xarelto Subjective Date/time seen: 09/03/23 13:46 Interval history: She underwent left hip pending. Work with therapy today. Pain control. 08/31/2023: Overnight events noted. Cardiology has been reconsulted. Metoprolol dose has been increased. Denies any pain. 09/01/2023: No overnight events. Heart rate much better. Denies any new complaints 09/02/2023: Reports left knee pain and swelling. Denies any other complaints heart rate is better. 09/03/2023: No overnight events. Left knee was tapped. Feels better today. Heart rate controlled performed peer to peer with her insurance company Review of Systems Review of Systems: All systems reviewed & are unremarkable except as noted in HPI and below Exam Narrative: GENERAL APPEARANCE: Alert and oriented x3, to be in no acute distress. HEAD: normocephalic atraumatic EYES: PERRL, EOMI. Vision grossly intact. ENT: Hearing grossly intact, no nasal discharge NECK: Neck supple, trachea midline. CARDIAC: IRIR with mild RVR No murmurs, rubs, or gallops. No cyanosis or pallor. Extremities are warm and well perfused. LUNGS: Clear to auscultation without rales, rhonchi, wheezing or diminished breath sounds. Respirations even and unlabored. ABD
--- NOTE | 2023-09-03 16:50 | PCPTNOTE ---
45 min spent with patient attempting to initiate PT treatment. Patient making phone calls for discharge planning to arrange transportation and w/c to attend a [employer] following discharge tonight. I informed patient of safety concerns with trying to attend and perform in the concert so soon after discharge and returning to her home alone later tonight safely. Patient will need a walker to maintain TTWB precautions. Patient states she has her mother's walker up stairs in the home. She states the walker is short and does not know if it can be adjusted. I informed patient that the walker will need to be the proper height and I instructed her on how to adjust the walker and measure for proper height. Patient states she plans to sleep in the recliner on the lower level at home. I expressed my concerns of rushing her discharge to make the concert tonight and not have equipment and assist set up for home. Patient is adamant that she wants to go to the concert. Care Coordination and RN aware of patient's plan. There are no orders for discharge at this time.
[2023-09-03] MEDS: RIVAROXABAN 20 MG TABLET PO (17:25)
[2023-09-04] VITALS: PULSE 77
[2023-09-04 04:00] VITALS: PULSE 87
[2023-09-04 04:25] VITALS: BP 117/73; PULSE 91; RESP 16; TEMP 36.4; O2SAT 97
[2023-09-04 08:00] VITALS: PULSE 91; RESP 16; O2SAT 97
[2023-09-04] MEDS: METOPROLOL SUCCINATE EXT REL 100 MG TABCR PO (08:56)
--- NOTE | 2023-09-04 11:53 | PM.DS ---
DS: Admitting Diagnosis Discharge Date 09/04/23 Admitting Diagnosis Fall Left femur neck fracture DS: Discharge Diagnosis Discharge Diagnosis (1) Effusion of knee joint: Qualifiers: Laterality: left Qualified Code(s): M25.462 - Effusion, left knee Code(s): M25.469 - Effusion, unspecified knee Status: Acute (2) Atrial fibrillation: Qualifiers: Atrial fibrillation type: persistent (not longstanding) Qualified Code(s): I48.19 - Other persistent atrial fibrillation Code(s): I48.91 - Unspecified atrial fibrillation Status: Acute (3) Fracture of hip, left, closed: Qualifiers: Encounter type: initial encounter Qualified Code(s): S72.002A - Fracture of unspecified part of neck of left femur, initial encounter for closed fracture Code(s): S72.002A - Fracture of unspecified part of neck of left femur, initial encounter for closed fracture Status: Acute DS: Summary Hospital Course Reason for hospitalization: Fall with left femur neck fracture Hospital Course: 73-year-old female presented to the ER after a fall,?ED workup revealed a subcapital fracture of the left femoral neck on CT.? As well as possible recurrent AFib.? Cardiology and Orthopedics were consulted. Underwent percutaneous pinning of left femoral neck fracture on 08/29/2023. She was rate controlled on beta-gene, was started on Xarelto after the surgery. Advised for outpatient follow-up with Cardiology for DCCV in 4-6 weeks. Was also found to have moderate effusion in left knee, spine status post aspiration of left knee by Orthopedics. Patient was denied for SNF by insurance. Plan to discharge her home with home health services. Advised to follow-up outpatient with Cardiology in Orthopedics Status at Discharge Functional status at discharge: uses cane/walker Overall status at discharge: patient is progressing back to baseline Time Spent with Patient Time attestation: Total time spent providing and/or coordinating discharge services: Time spent: Greater than 30 minutes Exam Narrative: GENERAL APPEARANCE: Alert and oriented x3, to be in no acute distress. HEAD: normocephalic atraumatic EYES: PERRL, EOMI. Vision grossly intact. ENT: Hearing grossly intact, no nasal discharge NECK: Neck supple, trachea midline. CARDIAC: IRIR with mild RVR No murmurs, rubs, or gallops. No cyanosis or pallor. Extremities are warm and well perfused. LUNGS: Clear to auscultation without rales, rhonchi, wheezing or diminished breath sounds. Respirations even and unlabored. ABDOMEN: BS positive x 4 quadrants. Soft, nondistended, nontender. No guarding or rebound. PERIPHERAL VASCULAR: Peripheral pulses palpable. Normal perfusion, cap refill <2 seconds. No edema. NEURO: Follows commands. No focal deficits. SKIN: Moodys without lesions or eruptions. PSYCH: Stable, no paranoia or delusional thinking. Discharge Plan Discharge Attending physician on discharge: Ssoa Harris Consulting providers: Robson Neri; Isaac Peguero; Juan M Myers Discharging Clinician: Sosa Harris Anticipated Discharge Date/Time: 09/04/23 11:40 Patient Disposition: Home Health Service Activity: may shower, no driving and follow weight bearing status Diet: as tolerated Wound Care Instructions: follow printed instructions Discharge Instructions: Postoperative Hip Fracture Instructions Dr. Isaac Peguero [phone] Dressing to be changed daily with an island dressing beginning on post op day #2. May stop dressing changes at post op day #14. Bin to be removed on post op day #14 Weight bearing: Non-weight bearing. You may shower with your dressing but do not submerge in a bath tub. Do not drive or operate machinery until you are released by your surgeon. Do not walk without a walker for any reason until you are released by your surgeon. DVT prevention x28 days. Continue to apply ice to the hip interm
== END 2023-09-04 16:35 | disposition home health service (06) | DRG 482 ==
LOC: ANHED 10:30 → ANH3MEDSUR 13:33
PROVIDERS: Internal Medicine; Nurse Practitioner Family; Orthopaedic Surgery; Student in an Organized Health Care Education/Training Program; Admitting Provider General Practice; Emergency Provider Emergency Medicine; Visit Provider Internal Medicine
PROC: 0QH734Z Insertion of Internal Fixation Device into Left Upper Femur, Percutaneous Approach (ICD-10-PCS; principal; 2023-08-29 14:00)
DX: S72.012A Unspecified intracapsular fracture of left femur, initial encounter for closed fracture (principal); I48.91 Unspecified atrial fibrillation; M17.12 Unilateral primary osteoarthritis, left knee; W18.39XA Other fall on same level, initial encounter
CPT/HCPCS: 36415; 71045; 73502; 73562; 73700; 80048; 80053; 83735; 83880; 84443; 85025; 85610; 85730; 86850; 86900; 86901; 93005; 93306; 96374; 97110; 97116; 97161; 97165; 97530; 97535; 99199; 99285; A9270; G0378; J0690; J1100; J1650; J2405; J2704; J3010; J7120

== ENCOUNTER 2024-02-16 19:48 | Emergency (ER) | payer MEDICARE, SELFPAY ==
--- NOTE | 2024-02-16 19:50 | ED.EYEPROB ---
HPI - Eye Problem General Chief complaint: Eye Problems Stated complaint: Eye Problems Time Seen by Provider: 02/16/24 19:50 Source: patient Mode of arrival: ambulatory Limitations: no limitations History of Present Illness HPI Narrative: Margarita is a 73-year-old female patient presenting to the clinic today with complaints of left eye discomfort. She reports she was trimming some bushes and a tree branch poked her and the lateral aspect of the left eye. She reports some discomfort but is not having any visual changes or sensitivity to light. Is concerned that there may be a piece of branch still stuck in her eye. Related Data Allergies Allergy/AdvReac Type Severity Reaction Status Date / Time ibuprofen Allergy Severe Dyspnea / Verified 02/16/24 19:58 SOB strawberry Allergy Unknown Rash Verified 02/16/24 19:58 Sulfa (Sulfonamide Allergy Unknown Itching Verified 02/16/24 19:58 Antibiotics) lidocaine AdvReac Unknown Itching Verified 02/16/24 19:58 Review of Systems Review of Systems: Pertinent positives per HPI. Patient denies any fever, chills, rash, headache, visual changes, dizziness, cough, runny nose, sore throat, shortness of breath, chest pain, palpitations, nausea, vomiting, diarrhea, constipation, abdominal pain, or any urinary issues. [facility] Past Medical History Medical History Atrial fibrillation Degenerative joint disease of knee Effusion of knee joint Family History Family History Other Adopted Social History Social History Social History: Currently lives at home alone. Surrogate decision maker: Gloria Crowell, family friend. [phone]. Code Status: Full Code. Smoking status: Never smoker Alcohol intake: never Substance use: never Lack of Transportation: YES Lack of Food: Sometimes True Current Housing: I Have Housing Concerned About Future Housing: No Difficulty Paying Gas/Electric Bills: YES Difficulty Paying for Meds: No Currently Unemployed: No Education: Bachelor's Degree Difficulty w/ Childcare or Family Care: No Gender identity (if verbalized by the patient): Female Spiritual care concerns: No ([employer]) Comments At the time of my signature, I reviewed and agree with the nursing past medical, surgical, social, and family history. There is no relevant family history pertinent to the patient complaint. Exam Narrative: General: Well-developed, well nourished, in no apparent distress Head: Normocephalic, atraumatic Eyes: Pupils equally round and reactive to light bilaterally, EOM intact, right sclera and conjunctive clear, left sclera and conjunctiva mildly injected, watery discharge, lids normal, Wood's lamp exam was performed and shows a corneal abrasion to the lateral mid eye outside the visual field Ears: TMs intact and clear, ear canals clear, no drainage, grossly hearing normal. Nose: Nares patent, no discharge, no inflammation, no sinus tenderness. Mouth: Oropharynx without lesions or masses, good dentition, MMM. Neck: Supple, trachea midline, no enlargement of anterior or posterior cervical nodes, no thyroid masses or goiter palpable. Cardio: Regular rate and rhythm, s1 and s2 normal, no murmur appreciated. Resp: Clear to auscultation bilaterally anteriorly and posteriorly, no rhonchi, rales, wheezing or rubs Course Course Emergency Course: Portions of this record may have been created with voice recognition software. Level of Care: Express Care Visit Vital Signs Vital signs: Vital signs reviewed Procedures Other Procedure Procedure 1: Other Procedure: Tetracaine 1 drop anesthetic was instilled with good anesthesia. Fluorescein stain of the left eye was performed with a corneal abrasion noted to the lateral mid eye outside the visu
[2024-02-16 20:00] VITALS: BP 106/82; PULSE 104; RESP 16; TEMP 36.6; O2SAT 100
== END 2024-02-16 20:15 | disposition home or self-care (01) ==
PROVIDERS: Emergency Provider Nurse Practitioner Family
DX: S05.02XA Injury of conjunctiva and corneal abrasion without foreign body, left eye, initial encounter (principal); W22.8XXA Striking against or struck by other objects, initial encounter; Y93.H9 Activity, other involving exterior property and land maintenance, building and construction; I48.91 Unspecified atrial fibrillation
CPT/HCPCS: 99213; A9270; G0463

== ENCOUNTER 2025-03-24 20:24 | Observation (INO) | payer MEDICARE, SELFPAY ==
[2025-03-24] VITALS (16 sets, daily range): BP systolic 106–128; BP diastolic 60–92; PULSE 85–146; RESP 11–30; TEMP 36.8; O2SAT 93–100
--- NOTE | ~2025-03-24 | XR_ITS ---
CHEST RADIOGRAPH CLINICAL HISTORY: afib rvr . COMPARISON: 08/28/2023 TECHNIQUE: Single portable view of the chest. FINDINGS The cardiomediastinal silhouette is unremarkable. The lungs are clear. IMPRESSION: No focal infiltrate or effusion. Reviewed, dictated and finalized at location A.
--- NOTE | 2025-03-24 20:33 | ECG_ITS ---
Test Date: 2025-03-24 20:30:12 Measurements Intervals [place] Rate: 135 P: 0 CA: 0 QRS: 68 QRSD: 94 T: 18 QT: 286 QTc: 430 Interpretive Statements ATRIAL FIBRILLATION WITH RAPID VENTRICULAR RESPONSE LOW QRS VOLTAGE IN LIMB LEADS BORDERLINE ST-T WAVE ABNORMALITY- INFERIOR LEADS BASELINE ARTIFACT- I, II, III, AVR, AVL, AVF ABNORMAL ECG No previous ECG available for comparison Electronically Signed On 03-24-2025 20:55:00 CDT by Shekhar Abbott D.O.
[2025-03-24 20:46] LABS: Basophils Percent Auto 0.4 % (0.2-1.2); Eosinophils Percent Auto 0.2 % (0-4.4); Hematocrit 37.4 % (37.0-47.0); Hemoglobin 12.4 g/dL (12.0-15.0); Immature Granulocyte Absolute 0.05 K/mm3 (0.00-0.031); Immature Granulocyte Percent A 0.5 % (0-0.5); Lymphocytes Absolute Auto 1.01 K/mm3 (0.9-3.2); Lymphocytes Percent Auto 9.3 % (18.3-44.2); Mean Corpuscular HGB Conc 33.2 g/dl (32-36); Mean Corpuscular Hemoglobin 31.4 pg (26-34); Mean Corpuscular Volume 94.7 fl (80-100); Monocytes Absolute Auto 0.9 K/mm3 (0.1-0.6); Monocytes Percent Auto 7.9 % (2.6-8.5); Neutrophils Absolute Auto 8.9 K/mm3 (1.3-6.7); Neutrophils Percent Auto 81.7 % (45.5-73.1); Platelet Count Result 201 k/mm3 (150-375); Red Blood Count 3.95 M/mm3 (4.2-5.4); Red Cell Distribution Width 12.4 % (11.5-14.5); White Blood Count 10.8 K/mm3 (4.5-10.0)
[2025-03-24 20:58] LABS: Alanine Aminotransferase 18 U/L (6-35); Alkaline Phosphatase 66 U/L (38-126); Anion Gap 9 mmol/L (4-12); Aspartate Amino Transferase 29 U/L (14-36); Bilirubin,Total 1.8 mg/dL (0.2-1.3); Blood Urea Nitrogen 18 mg/dL (7-17); Calcium 8.9 mg/dL (8.4-10.2); Carbon Dioxide 21 mmol/L (22-30); Chloride 103 mmol/L (98-107); Estimated CRCL calculation 63 ml/min; Estimated Glomerular Filt Rate > 60; Glucose 110 mg/dL (65-110); Lipase 34 U/L (23-300); Potassium 3.8 mmol/L (3.4-5.0); Sodium 133 mmol/L (137-145); Total Protein 7.2 g/dL (6.3-8.2)
--- NOTE | 2025-03-24 21:01 | ED_ITS ---
HPI - Arrhythmia/Palpitations General Chief Complaint: Arrhythmia/Palpitations Stated Complaint: AFIB RVR Time Seen by Provider: 03/24/25 20:33 Source: patient and other (Friend) Mode of arrival: EMS Limitations: no limitations History of Present Illness HPI narrative: Patient presents with report of a tightness in her chest and shortness of breath that woke her her sleep. She reports that she has a history of atrial fibrillation although was told that sometimes I'll be in it and sometimes I won't.Regardless, she takes no medications at baseline including now rate- controlling/rhythm controlling medications or anticoagulation. Instead, she reports that she drinks milk to keep me calm...and I eat healthy. She also reports a vague soreness in her throat and a dry cough. She feels like her voice is strange. She denies any edema. She has had a dry cough. She thought perhaps she had a fever last night but then states she turned on her side and felt better (?). Cardiac risk factors HTN: 0 HLD:0 DM:0 Obese:0 Smoker:0 Personal history NE/TIA/CVA: 0 Fam Hx NE in first degree relative <65yo: Unknown (adopted) Related Data Allergies Allergy/AdvReac Type Severity Reaction Status Date / Time ibuprofen Allergy Severe Dyspnea / Verified 02/16/24 19:58 SOB strawberry Allergy Unknown Rash Verified 02/16/24 19:58 Sulfa (Sulfonamide Allergy Unknown Itching Verified 02/16/24 19:58 Antibiotics) lidocaine AdvReac Unknown Itching Verified 02/16/24 19:58 [facility] Past Medical History Medical History Effusion of knee joint Degenerative joint disease of knee Atrial fibrillation Family History Family History Other Adopted Social History Social History Social History: Currently lives at home alone. Surrogate decision maker: Gloria Crowell, family friend. [phone]. Code Status: Full Code. Smoking status: Never smoker Second hand tobacco smoke exposure: No Alcohol intake: never Substance use: never Do You Feel Safe in your Home?: Yes Lack of Transportation: YES Lack of Food: Sometimes True Current Housing: I Have Housing Concerned About Future Housing: No Difficulty Paying Gas/Electric Bills: No Difficulty Paying for Meds: No Currently Unemployed: No Education: Bachelor's Degree Difficulty w/ Childcare or Family Care: No Gender identity (if verbalized by the patient): Female Spiritual care concerns: No Exam 2 Narrative: GENERAL: well-nourished, and in no acute distress. HEAD: Normocephalic, atraumatic. EYES: Non injected, non icteric ENT: Nares clear, no rhinorrhea or epistaxis. Gross auditory acuity intact. Mild posterior oropharyngeal erythema. NECK: Supple. No meningismus. Left cervical lymphadenopathy, mild. CHEST: Speaking in full sentences. No respiratory distress. HEART: IRregularly irregular rate and rhythm; perfusing pulses ABDOMEN: Soft, nondistended. EXTREMITIES: Normal range of motion. No lower extremity edema. SKIN: Warm, dry NEURO: No focal deficits. Alert and oriented. Answering questions. Following commands. Speech without aphasia or dysarthria. PSYCH: Congruent mood and affect. Frequently laughs/chortles after saying something. Course Vital Signs Vital signs: Vital Signs Temperature 98.3 F 03/24/25 20:23 Pulse Rate 146 H 03/24/25 20:23 Respiratory Rate 15 03/24/25 20:23 Blood Pressure 128/92 H 03/24/25 20:23 Pulse Oximetry 95 03/24/25 20:23 Oxygen Delivery Room Air 03/24/25 20:23 Temperature 98.4 F 03/26/25 12:00 Pulse Rate 107 H 03/26/25 12:00 Respiratory Rate 20 03/26/25 12:00 Blood Pressure 100/61 03/26/25 12:00 Pulse Oximetry 100 03/26/25 12:00 Oxygen Delivery Room Air 03/26/25 08:00 MDM - Arrhythmia/Palpitations MDM Narrative Medical decision making narrative: Patient presented with chest tightness and shortness of breath. In the emergency department she is afebrile with acceptable blood pressure. Heart rate is 146 initially. Physical exam revealed an irregular and rapid heartbeat consistently 130s beats per minute. Based on this, the most likely diagnosis is atrial fibrillation with rapid ventricular response (AFib with RVR). This is supported by age, underlying diagnosis not on meds. An IV was placed and the patient was put on cardiac and pulse oximetry monitors. Patient hemodynamically stable thus early priority in management was to slow the ventricular rate using diltiazem 0.25mg/kg = 15mg. Patient successfully rate-controlled with this dose so will administer 30mg PO short-acting diltiazem q6 hours with holding parameters. Mild leukocytosis. BNP only mildly elevated. Not to a degree to suggest acute heart failure especially reference range of the assay for patient's age. Patient not currently on any rate or rhythm controlling medications nor and anticoagulation. For this reason, do recommend she be admitted for further monitoring and to establish a safe plan/regimen for going home upon discharge. She verifies understanding and is in agreement. CHADS VASc score calculated as risk stratification for determining stroke risk. 3?points Stroke risk was 3.2% per year in >90,000 patients (the [place] Atrial Fibrillation Cohort Study) and 4.6% risk of stroke/TIA/systemic embolism. Given this, suspect anticoagulation should be started. HAS-BLED Score 1?points Risk was 3.4% in one validation study (Lip 2010) and 1.02 bleeds per 100 patient-years in another validation study (Pisters 2010). Anticoagulation should be considered: Patient has a relatively low risk for major bleeding (~1/100 patient-years). Will defer these decisions and discussions with patient to admitting team. == D-dimer is mildly elevated but age adjusted (i.e. < 0.76) so will defer proceeding with CT, especially because other etiologies more likely. Also follows YEARS Algorithm : No Clinical signs of DVT: No Hemoptysis: No PE is most likely diagnosis: No D-dimer >1000ng/mL: No Result: PE Excluded = Patient discussed with on-call hospitalist JERONIMO. Accepted for admission. Has otherwise been hemodynamically stable. Differential Diagnosis Differential diagnosis: Likely palpitations, anxiety, sinus tachycardia, artial fibrillation, artial flutter, ventricular premature beats, supraventricular tachycardia, ventricular tachycardia and WPW Lab Data Attestation: I reviewed the patient's lab results. Lab results narrative: TSH normal 03/26/25 04:32 03/26/25 04:32 Labs: Lab Results 03/24/25 03/24/25 03/24/25 Range/Units 20:40 20:41 21:49 WBC 10.8 H (4.5-10.0) K/mm3 RBC 3.95 L (4.2-5.4) M/mm3 Hgb 12.4 (12.0-15.0) g/dL Hct 37.4 (37.0-47.0) % MCV 94.7 (80-100) fl MCH 31.4 (26-34) pg MCHC 33.2 (32-36) g/dl RDW 12.4 (11.5-14.5) % Plt Count 201 (150-375) k/mm3 MPV 10.0 (7.4-10.4) fl Immature Gran % (Auto) 0.5 (0-0.5) % Neut % (Auto) 81.7 H (45.5-73.1) % Lymph % (Auto) 9.3 L (18.3-44.2) % Hanson % (Auto) 7.9 (2.6-8.5) % Eos % (Auto) 0.2 (0-4.4) % Baso % (Auto) 0.4 (0.2-1.2) % Lymph # (Auto) 1.01 (0.9-3.2) K/mm3 Hanson # (Auto) 0.9 H (0.1-0.6) K/mm3 Eos # (Auto) 0.0 (0-0.3) K/mm3 Baso # (Auto) 0.0 (0.0-0.1) K/mm3 Abs Immat Gran (auto) 0.05 H (0.00-0.031) K/mm3 Absolute Neuts (auto) 8.9 H (1.3-6.7) K/mm3 Absolute Nucleated RBC 0.000 (0.0-0.012) K/mm3 Nucleated RBC % 0.0 (0.0-0.2) % PT 15.6 H (11.1-14.7) Seconds INR 1.3 APTT 28.5 (22.3-36.8) Seconds D-Dimer 0.64 H (<0.48) ug/mL Sodium 133 L (137-145) mmol/L Potassium 3.8 (3.4-5.0) mmol/L Chloride 103 (98-107) mmol/L Carbon Dioxide 21 L (22-30) mmol/L Anion Gap 9 (4-12) mmol/L BUN 18 H (7-17) mg/dL Creatinine 0.63 L (0.7-1.0) mg/dL Estim Creat Clear Calc 63 ml/min Estimated GFR > 60 (59 - ) Glucose 110 (65-110) mg/dL Calcium 8.9 (8.4-10.2) mg/dL Total Bilirubin 1.8 H (0.2-1.3) mg/dL AST 29 (14-36) U/L ALT 18 (6-35) U/L Alkaline Phosphatase 66 (38-126) U/L Troponin I < 0.012 (0.000-0.034) ng/mL NT-Pro-B Natriuret Pep 497 H (19.9-100) pg/mL Total Protein 7.2 (6.3-8.2) g/dL Albumin 4.0 (3.5-5.1) g/dL Lipase 34 (23-300) U/L TSH 0.760 (0.465-4.680) uIU/mL Influenza A (RT-PCR) Negative (Negative) Influenza B (RT-PCR) Negative (Negative) RSV (RT-PCR) Negative (Negative) SARS-CoV-2 RNA (RT-PCR) Negative (Negative) Imaging Data Radiologist's impression: IMPRESSION: No focal infiltrate or effusion. ECG Data EKG #1: Attestation: I personally reviewed and interpreted this ECG as follows: ECG completion date: 03/24/25 ECG completion time: 20:30 Interpretation: Atrial fibrillation at a rate of 185 beats per minute. This is a rapid ventricular response. QRS 94. QT/QTC 286/365. Good R-wave progression across the precordial leads. Discharge Plan Discharge Clinical Impression: Atrial fibrillation with RVR Patient Disposition: Still a Patient Condition: Stable
[2025-03-24 21:09] LABS: Troponin I < 0.012 ng/mL (0.000-0.034)
[2025-03-24 21:12] LABS: INR 1.3; Prothrombin Time 15.6 Seconds (11.1-14.7)
[2025-03-24 21:13] LABS: Partial Thromboplastin Time 28.5 Seconds (22.3-36.8)
[2025-03-24] MEDS: dilTIAZem HCl INJ 25 MG/5 ML VIAL 15 MG IV PUSH (21:33)
[2025-03-24 21:48] LABS: NT Pro B Type Natriuretic Pept 497 pg/mL (19.9-100)
[2025-03-24 21:55] LABS: D Dimer 0.64 ug/mL (<0.48)
[2025-03-24] MEDS: dilTIAZem HCL 30 MG TABLET PO (22:10)
[2025-03-24] MEDS: HYDROcodone/acetaminophen (*CRX) 5-325 MG TABLET 1 TAB PO (22:40)
[2025-03-24] MEDS: ASPIRIN 81 MG CHEWABLE TABLET 324 MG PO (22:41)
[2025-03-24 22:45] LABS: Influenza A QL RT-PCR Negative (Negative); Influenza B QL RT-PCR Negative (Negative); RSV RNA, RT-PCR Negative (Negative); SARS-CoV-2 RNA PCR Negative (Negative)
[2025-03-24 23:22] LABS: Strep Group A RT-PCR NOT DETECTED (Negative)
--- NOTE | 2025-03-24 23:41 | ECG_ITS ---
Test Date: 2025-03-24 23:54:47 Measurements Intervals [place] Rate: 88 P: 0 NC: 0 QRS: 64 QRSD: 90 T: 63 QT: 376 QTc: 456 Interpretive Statements ATRIAL FIBRILLATION LOW QRS VOLTAGE IN LIMB LEADS BORDERLINE ST-T WAVE ABNORMALITY- DIFFUSE LEADS BASELINE ARTIFACT- I, III, AVL ABNORMAL ECG Compared to ECG 03/24/2025 20:30:12 HEART RATE HAS DECREASED Electronically Signed On 03-25-2025 06:02:41 CDT by Shekhar Abbott D.O.
[2025-03-25] VITALS (14 sets, daily range): BP systolic 92–122; BP diastolic 53–73; PULSE 80–100; RESP 16–18; TEMP 36.6–37.7; O2SAT 94–100; BMI 21.2
--- NOTE | 2025-03-25 00:19 | ADMGEN ---
This patient, Margarita Orta, was admitted to IMU Room 206-01. Patient/family oriented to hospital policies and general routines including ID bracelet, bed and alarms, visiting hours, pain management, procedures, bathroom and other care routines, personal items, smoking policy, room service/diet, and visiting hours. Information on how to activate the Rapid Response Team has been discussed. Patient/Family are encouraged to report perceived risks to care and to ask questions if they do not understand what they are told or what they should do.
[2025-03-25 00:24] LABS: Troponin I < 0.012 ng/mL (0.000-0.034)
--- NOTE | 2025-03-25 01:43 | PC.NURSE ---
Pt reports having difficulty getting to Dr appointments, having enough food (currently relying on [employer]), and no access for washing her clothing. Care coordination consulted.
[2025-03-25 03:01] LABS: Troponin I < 0.012 ng/mL (0.000-0.034)
[2025-03-25 04:52] LABS: Basophils Percent Auto 0.3 % (0.2-1.2); Eosinophils Percent Auto 0.3 % (0-4.4); Hematocrit 37.7 % (37.0-47.0); Hemoglobin 12.5 g/dL (12.0-15.0); Immature Granulocyte Absolute 0.03 K/mm3 (0.00-0.031); Immature Granulocyte Percent A 0.3 % (0-0.5); Lymphocytes Absolute Auto 1.43 K/mm3 (0.9-3.2); Lymphocytes Percent Auto 12.9 % (18.3-44.2); Mean Corpuscular HGB Conc 33.2 g/dl (32-36); Mean Corpuscular Hemoglobin 31.9 pg (26-34); Mean Corpuscular Volume 96.2 fl (80-100); Mean Platelet Volume 11.2 fl (7.4-10.4); Monocytes Percent Auto 9.3 % (2.6-8.5); Neutrophils Absolute Auto 8.6 K/mm3 (1.3-6.7); Neutrophils Percent Auto 76.9 % (45.5-73.1); Platelet Count Result 203 k/mm3 (150-375); Red Blood Count 3.92 M/mm3 (4.2-5.4); Red Cell Distribution Width 12.5 % (11.5-14.5); White Blood Count 11.1 K/mm3 (4.5-10.0)
[2025-03-25 04:56] LABS: Alanine Aminotransferase 17 U/L (6-35); Albumin Level 3.7 g/dL (3.5-5.1); Alkaline Phosphatase 60 U/L (38-126); Anion Gap 8 mmol/L (4-12); Aspartate Amino Transferase 24 U/L (14-36); Bilirubin,Total 2.1 mg/dL (0.2-1.3); Blood Urea Nitrogen 19 mg/dL (7-17); Carbon Dioxide 23 mmol/L (22-30); Chloride 104 mmol/L (98-107); Estimated CRCL calculation 58 ml/min; Estimated Glomerular Filt Rate > 60; Glucose 136 mg/dL (65-110); Potassium 3.6 mmol/L (3.4-5.0); Sodium 135 mmol/L (137-145); Total Protein 6.6 g/dL (6.3-8.2)
[2025-03-25] MEDS: dilTIAZem HCL CD 120 MG CAP.24HR PO ×2 (05:19→08:46)
[2025-03-25] MEDS: POTASSIUM CHLORIDE 20 MEQ ER TABLET 40 MEQ PO (06:46)
[2025-03-25] MEDS: APIXABAN 5 MG TABLET PO ×2 (08:46→20:51)
--- NOTE | 2025-03-25 09:54 | P.HP_ITS ---
H&P: HPI History of Present Illness Date/Time: 03/25/25 09:54 Chief Complaint: rapid heart rate Narrative: 74 y. o female with h/o afib, medication noncompliance admitted for rapid HR. IT started last night, she just didnot feel well, had mid chest pressure like discomfort. She states she was supposed to be on eliquis for her afib but stopped taking it as she didnot want to. She has vague c/o throat discomfort but unable to describe exactly what is bothering her. 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 Coughed up some secretions few days ago but no chills and no other specific complains. In ED: HR 146. Mild leukocytosis. BNP only mildly elevated. D-dimer is mildly elevated. CT was not completed as other etiologies are more likely. refer to ED documentation CHADS Vasc score-3 HAS BLED- 1 ECG - irregularly irregular narrow-complex tachycardia without associated P- waves, consistent with the diagnosis of Afib with RVR. Patient hemodynamically stable, cardizem 15mg- IV was given in ed Patient successfully rate-controlled, she was started on 30mg PO short-acting diltiazem q6 hours with holding parameters. It was chaged per nocturist to 120 mg daily diltiazem. Cardiology was consulted and she was admitted to IMU for close monitoring. pt is full code. Review of Systems Review of Systems: All systems reviewed & are unremarkable except as noted in HPI and below PMFSH Past Medical History Medical History Atrial fibrillation Degenerative joint disease of knee Effusion of knee joint Family History Family History Other Adopted Social History Social History Social History: Currently lives at home alone. Surrogate decision maker: Gloria Crowell, family friend. [phone]. Code Status: Full Code. Smoking status: Never smoker Second hand tobacco smoke exposure: No Alcohol intake: never Substance use: never Do You Feel Safe in your Home?: Yes Lack of Transportation: YES Lack of Food: Sometimes True Current Housing: I Have Housing Concerned About Future Housing: No Difficulty Paying Gas/Electric Bills: No Difficulty Paying for Meds: No Currently Unemployed: No Education: Bachelor's Degree Difficulty w/ Childcare or Family Care: No Gender identity (if verbalized by the patient): Female Spiritual care concerns: No Meds Home Medications and Allergies Home Medications ?Medication ?Instructions ?Recorded ?Confirmed ?Type tobramycin 0.3 % eye drops 1 drp LEFT EYE Q4H 7 days #5 mL 02/16/24 03/25/25 Rx Allergies Allergy/AdvReac Type Severity Reaction Status Date / Time ibuprofen Allergy Severe Dyspnea / Verified 02/16/24 19:58 SOB strawberry Allergy Unknown Rash Verified 02/16/24 19:58 Sulfa (Sulfonamide Allergy Unknown Itching Verified 02/16/24 19:58 Antibiotics) lidocaine AdvReac Unknown Itching Verified 02/16/24 19:58 Vital Signs Vital Signs - 24 hr 03/24/25 20:23 03/24/25 20:30 03/24/25 20:35 Temperature 98.3 F Pulse Rate 146 H 129 H 146 H Respiratory Rate 15 11 L Blood Pressure 128/92 H 128/92 H Pulse Oximetry 95 97 Oxygen Delivery Room Air 03/24/25 20:45 03/24/25 21:00 03/24/25 21:15 Temperature Pulse Rate 127 H 124 H 127 H Respiratory Rate 15 14 16 Blood Pressure 120/86 108/66 106/69 Pulse Oximetry 98 96 98 Oxygen Delivery 03/24/25 21:30 03/24/25 21:45 03/24/25 22:00 Temperature Pulse Rate 121 H 108 H 96 Respiratory Rate 22 H 15 16 Blood Pressure 117/78 111/68 118/74 Pulse Oximetry 100 100 99 Oxygen Delivery 03/24/25 22:15 03/24/25 22:30 03/24/25 22:46 Temperature Pulse Rate 92 102 H 105 H Respiratory Rate 17 19 20 Blood Pressure 115/60 125/87 127/79 Pulse Oximetry 98 98 95 Oxygen Delivery 03/24/25 23:00 03/24/25 23:15 03/24/25 23:30 Temperature Pulse Rate 101 H 99 98 Respiratory Rate 25 H 14 23 H Blood Pressure 126/78 114/73 108/77 Pulse Oximetry 94 95 95 Oxygen Delivery 03/24/25 23:45 03/25/25 00:00 03/25/25 00:18 Temperature 98.1 F Pulse Rate 85 88 97 Respiratory Rate 30 H 16 18 Blood Pressure 108/74 92/63 L 96/53 L Pulse Oximetry 93 94 96 Oxygen Delivery 03/25/25 01:46 03/25/25 02:00 03/25/25 03:33 Temperature Pulse Rate 80 Respiratory Rate Blood Pressure Pulse Oximetry Oxygen Delivery Room Air Room Air 03/25/25 04:00 03/25/25 04:00 03/25/25 06:00 Temperature 98 F Pulse Rate 88 92 100 Respiratory Rate 18 Blood Pressure 95/66 L Pulse Oximetry 100 Oxygen Delivery 03/25/25 08:00 03/25/25 08:23 Temperature 98.4 F Pulse Rate 99 Respiratory Rate 18 Blood Pressure 109/73 Pulse Oximetry 100 96 Oxygen Delivery Room Air Exam Const: General: comfortable Resp: Effort & Inspection: normal respiratory effort Auscultation: clear to auscultation bilaterally Cardio: Rhythm: abnormal rhythm GI: GI Palp: Yes Soft to palpation Auscultation: normal bowel sounds Skin: General skin exam: normal color Neuro: Speech: normal speech Motor exam (neuro): 5/5 motor strength present throughout Sensory Exam: normal sensation H&P: Results Labs Labs: Short CBC 03/24/25 03/25/25 Range/Units 20:41 03:21 WBC 10.8 H 11.1 H (4.5-10.0) K/mm3 Hgb 12.4 12.5 (12.0-15.0) g/dL Hct 37.4 37.7 (37.0-47.0) % Plt Count 201 203 (150-375) k/mm3 BMP 03/24/25 03/25/25 20:41 03:21 Sodium 133 L 135 L Potassium 3.8 3.6 Chloride 103 104 Carbon Dioxide 21 L 23 BUN 18 H 19 H Creatinine 0.63 L 0.69 L Glucose 110 136 H Calcium 8.9 9.0 Cardiac Enzymes 03/24/25 03/24/25 03/25/25 Range/Units 20:41 23:56 02:22 Troponin I < 0.012 < 0.012 < 0.012 (0.000-0.034) ng/mL Liver Function 03/24/25 03/25/25 Range/Units 20:41 03:21 Total Bilirubin 1.8 H 2.1 H (0.2-1.3) mg/dL AST 29 24 (14-36) U/L ALT 18 17 (6-35) U/L Alkaline Phosphatase 66 60 (38-126) U/L Albumin 4.0 3.7 (3.5-5.1) g/dL Assessment and Plan Assessment and plan (1) Atrial fibrillation with RVR: Code(s): I48.91 - Unspecified atrial fibrillation Status: Acute (2) Degenerative joint disease of knee: Qualifiers: Laterality: left Osteoarthritis type: primary Qualified Code(s): M17.12 - Unilateral primary osteoarthritis, left knee Code(s): M17.9 - Osteoarthritis of knee, unspecified Status: Acute Plan Pt is admitted for Abif with RVR. In ed-HR 146. Mild leukocytosis. BNP only mildly elevated. D-dimer is mildly elevated. CT was not completed as other etiologies are more likely. refer to ED documentation CHADS Vasc score-3 HAS BLED- 1 ECG - irregularly irregular narrow-complex tachycardia without associated P- waves, consistent with the diagnosis of Afib with RVR. Patient hemodynamically stable, cardizem 15mg- IV was given in ed Patient successfully rate-controlled, she was started on 30mg PO short-acting diltiazem q6 hours with holding parameters. It was changed per grades 1 thru 5 teacher to 120 mg daily diltiazem. Cardiology was consulted and she was admitted to IMU for close monitoring. -Pt is on eliquis 5 mg [id number] - asa 324 mg given in ed - daily labs Quality VTE Prophylaxis VTE prophylaxis: pharmacologic ordered Hospitalist MIPS Advance Care Plan I have confirmed that the patient's Advanced Care Plan is present, code status is documented, or surrogate decision maker is listed in patient medical record.: Yes Medication Reconciliation I have utilized all available resources to obtain, update and review the patients current medications (includes all prescriptions, OTC, herbals, cannabis, and nutritional supplements).: Yes
--- NOTE | 2025-03-25 12:12 | P.CONCA_ITS ---
Assessment and Plan Assessment and plan (1) Atrial fibrillation with RVR: Code(s): I48.91 - Unspecified atrial fibrillation Status: Acute Plan 74-year-old woman with paroxysmal atrial fibrillation noncompliant on medication presented with chest discomfort Chest discomfort -troponin negative have ruled out ID -likely secondary to rapid ventricular rates Paroxysmal atrial fibrillation -continue diltiazem and Eliquis -I have discussed the importance of medication adherence -I have also discussed with her rate control versus rhythm control -I have also explained that this can be decided in outpatient as well No further inpatient cardiac workup warranted. She can follow-up in clinic. History of Present Illness History of Present Illness Consult date/time: 03/25/25 12:12 Requesting physician: Helen Wong APRN Consult reason: Other Reason For Visit: AFIB RVR Narrative: 74-year-old woman with paroxysmal atrial fibrillation noncompliant on medication presented with chest discomfort. Started last evening and was proceeded by a few days of coughing that is at times productive followed by throat discomfort as well as mild loss of voice. Prior to this she was able to ride her bike however is limited when she needs to ride uphill and is unsure if she has orthopedic issues or just does not have the stamina to ride uphill. Otherwise it does not seem that she has cardiopulmonary limitations to physical activity. She does feel fatigued from time to time with physical activity. Currently main complaint is soreness in her left calf that she describes as a charley horse and feels the need to get up and walk. She also does complain of room spinning sensation after a evening of sleeping on a pillow where her neck is hyperextended. Review of Systems 2 Cardiovascular: Cardiovascular: Reports as per HPI Respiratory: Respiratory: Reports as per HPI [facility] Past Medical History Medical History Atrial fibrillation Degenerative joint disease of knee Effusion of knee joint Family History Family History Other Adopted Social History Social History Social History: Currently lives at home alone. Surrogate decision maker: Gloria Crowell, family friend. [phone]. Code Status: Full Code. Smoking status: Never smoker Second hand tobacco smoke exposure: No Alcohol intake: never Substance use: never Do You Feel Safe in your Home?: Yes Lack of Transportation: YES Lack of Food: Sometimes True Current Housing: I Have Housing Concerned About Future Housing: No Difficulty Paying Gas/Electric Bills: No Difficulty Paying for Meds: No Currently Unemployed: No Education: Bachelor's Degree Difficulty w/ Childcare or Family Care: No Gender identity (if verbalized by the patient): Female Spiritual care concerns: No Meds Home Medications and Allergies Home Medications ?Medication ?Instructions ?Recorded ?Confirmed ?Type tobramycin 0.3 % eye drops 1 drp LEFT EYE Q4H 7 days #5 mL 02/16/24 03/25/25 Rx Allergies Allergy/AdvReac Type Severity Reaction Status Date / Time ibuprofen Allergy Severe Dyspnea / Verified 02/16/24 19:58 SOB strawberry Allergy Unknown Rash Verified 02/16/24 19:58 Sulfa (Sulfonamide Allergy Unknown Itching Verified 02/16/24 19:58 Antibiotics) lidocaine AdvReac Unknown Itching Verified 02/16/24 19:58 Vital Signs Vital Signs - 24 hr 03/24/25 20:23 03/24/25 20:30 03/24/25 20:35 Temperature 36.8 C Pulse Rate 146 H 129 H 146 H Respiratory Rate 15 11 L Blood Pressure 128/92 H 128/92 H Pulse Oximetry 95 97 Oxygen Delivery Room Air 03/24/25 20:45 03/24/25 21:00 03/24/25 21:15 Temperature Pulse Rate 127 H 124 H 127 H Respiratory Rate 15 14 16 Blood Pressure 120/86 108/66 106/69 Pulse Oximetry 98 96 98 Oxygen Delivery 03/24/25 21:30 03/24/25 21:45 03/24/25 22:00 Temperature Pulse Rate 121 H 108 H 96 Respiratory Rate 22 H 15 16 Blood Pressure 117/78 111/68 118/74 Pulse Oximetry 100 100 99 Oxygen Delivery 03/24/25 22:15 03/24/25 22:30 03/24/25 22:46 Temperature Pulse Rate 92 102 H 105 H Respiratory Rate 17 19 20 Blood Pressure 115/60 125/87 127/79 Pulse Oximetry 98 98 95 Oxygen Delivery 03/24/25 23:00 03/24/25 23:15 03/24/25 23:30 Temperature Pulse Rate 101 H 99 98 Respiratory Rate 25 H 14 23 H Blood Pressure 126/78 114/73 108/77 Pulse Oximetry 94 95 95 Oxygen Delivery 03/24/25 23:45 03/25/25 00:00 03/25/25 00:18 Temperature 36.7 C Pulse Rate 85 88 97 Respiratory Rate 30 H 16 18 Blood Pressure 108/74 92/63 L 96/53 L Pulse Oximetry 93 94 96 Oxygen Delivery 03/25/25 01:46 03/25/25 02:00 03/25/25 03:33 Temperature Pulse Rate 80 Respiratory Rate Blood Pressure Pulse Oximetry Oxygen Delivery Room Air Room Air 03/25/25 04:00 03/25/25 04:00 03/25/25 06:00 Temperature 36.6 C Pulse Rate 88 92 100 Respiratory Rate 18 Blood Pressure 95/66 L Pulse Oximetry 100 Oxygen Delivery 03/25/25 08:00 03/25/25 08:00 03/25/25 08:23 Temperature 36.9 C Pulse Rate 99 91 Respiratory Rate 18 Blood Pressure 109/73 Pulse Oximetry 100 96 Oxygen Delivery Room Air 03/25/25 10:00 Temperature Pulse Rate 96 Respiratory Rate Blood Pressure Pulse Oximetry Oxygen Delivery Exam 2 Const: General: uncomfortable HENMT: Mouth: Yes moist mucous membranes Eyes: EOM: EOMs intact bilaterally Neck: Neck: no JVD Resp: Effort & Inspection: normal respiratory effort Auscultation: rales Cardio: Rate: tachycardic Rhythm: abnormal rhythm Extrem: General: no pedal edema Results Labs and Meds 03/25/25 03:21 03/25/25 03:21 Lab results: Cardiac Enzymes 03/24/25 03/24/25 03/25/25 Range/Units 20:41 23:56 02:22 AST 29 (14-36) U/L Troponin I < 0.012 < 0.012 < 0.012 (0.000-0.034) ng/mL 03/25/25 Range/Units 03:21 AST 24 (14-36) U/L Troponin I (0.000-0.034) ng/mL Coagulation 03/24/25 Range/Units 20:41 PT 15.6 H (11.1-14.7) Seconds APTT 28.5 (22.3-36.8) Seconds CBC 03/24/25 03/25/25 Range/Units 20:41 03:21 WBC 10.8 H 11.1 H (4.5-10.0) K/mm3 RBC 3.95 L 3.92 L (4.2-5.4) M/mm3 Hgb 12.4 12.5 (12.0-15.0) g/dL Hct 37.4 37.7 (37.0-47.0) % Plt Count 201 203 (150-375) k/mm3 Lymph # (Auto) 1.01 1.43 (0.9-3.2) K/mm3 [place] # (Auto) 0.9 H 1.0 H (0.1-0.6) K/mm3 Eos # (Auto) 0.0 0.0 (0-0.3) K/mm3 Baso # (Auto) 0.0 0.0 (0.0-0.1) K/mm3 Comprehensive Metabolic Panel 03/24/25 03/25/25 Range/Units 20:41 03:21 Sodium 133 L 135 L (137-145) mmol/L Potassium 3.8 3.6 (3.4-5.0) mmol/L Chloride 103 104 (98-107) mmol/L Carbon Dioxide 21 L 23 (22-30) mmol/L BUN 18 H 19 H (7-17) mg/dL Creatinine 0.63 L 0.69 L (0.7-1.0) mg/dL Glucose 110 136 H (65-110) mg/dL Calcium 8.9 9.0 (8.4-10.2) mg/dL AST 29 24 (14-36) U/L ALT 18 17 (6-35) U/L Alkaline Phosphatase 66 60 (38-126) U/L Total Protein 7.2 6.6 (6.3-8.2) g/dL Albumin 4.0 3.7 (3.5-5.1) g/dL Intake and Output 03/24/25 03/25/25 03/25/25 23:59 07:59 15:59 Intake Total 400 220 Balance 400 220 Intake: Oral 400 220 Other: # Unmeasured Voids 1 Patient Weight 03/25/25 23:59 Weight 66.2 kg
[2025-03-26] VITALS (7 sets, daily range): BP systolic 100–134; BP diastolic 55–74; PULSE 94–119; RESP 16–20; TEMP 36.6–37.2; O2SAT 94–100
[2025-03-26] MEDS: ACETAMINOPHEN 325 MG TABLET 650 MG PO (04:34)
[2025-03-26 04:56] LABS: Basophils Percent Auto 0.4 % (0.2-1.2); Eosinophils Absolute Auto 0.1 K/mm3 (0-0.3); Eosinophils Percent Auto 0.5 % (0-4.4); Hematocrit 38.2 % (37.0-47.0); Hemoglobin 12.8 g/dL (12.0-15.0); Immature Granulocyte Absolute 0.03 K/mm3 (0.00-0.031); Immature Granulocyte Percent A 0.3 % (0-0.5); Lymphocytes Percent Auto 13.2 % (18.3-44.2); Mean Corpuscular HGB Conc 33.5 g/dl (32-36); Mean Corpuscular Volume 95.5 fl (80-100); Mean Platelet Volume 10.8 fl (7.4-10.4); Monocytes Absolute Auto 1.1 K/mm3 (0.1-0.6); Neutrophils Percent Auto 75.6 % (45.5-73.1); Platelet Count Result 221 k/mm3 (150-375); Red Cell Distribution Width 12.4 % (11.5-14.5); White Blood Count 10.6 K/mm3 (4.5-10.0)
[2025-03-26 05:15] LABS: Alanine Aminotransferase 20 U/L (6-35); Albumin Level 3.9 g/dL (3.5-5.1); Alkaline Phosphatase 73 U/L (38-126); Anion Gap 9 mmol/L (4-12); Aspartate Amino Transferase 31 U/L (14-36); Bilirubin,Total 1.5 mg/dL (0.2-1.3); Blood Urea Nitrogen 15 mg/dL (7-17); Calcium 9.1 mg/dL (8.4-10.2); Carbon Dioxide 21 mmol/L (22-30); Chloride 104 mmol/L (98-107); Estimated CRCL calculation 74 ml/min; Estimated Glomerular Filt Rate > 60; Glucose 120 mg/dL (65-110); Magnesium 2.2 mg/dL (1.6-2.3); Potassium 3.9 mmol/L (3.4-5.0); Sodium 134 mmol/L (137-145); Total Protein 7.3 g/dL (6.3-8.2)
--- NOTE | 2025-03-26 07:50 | P.PNIM_ITS ---
Progress Note: A&P Assessment and Plan (1) Atrial fibrillation with RVR: Code(s): I48.91 - Unspecified atrial fibrillation Status: Acute Assessment and Plan: * Chronic condition - supposed to be eliquis but stopped because she didn't want to * CHADS Vasc score-3, HAS BLED- 1 * ECG - irregularly irregular narrow-complex tachycardia without associated P- waves, consistent with the diagnosis of Afib with RVR. * Keep serum potassium >4 and keep magnesium >2 * Diltiazem drip in ED, now on Diltiazen 120mg PO qAM * Consider Echocardiogram ordered * Cardiology consult pending, appreciate assistance and recommendations (2) Degenerative joint disease of knee: Qualifiers: Osteoarthritis type: primary Laterality: left Qualified Code(s): M17.12 - Unilateral primary osteoarthritis, left knee Code(s): M17.9 - Osteoarthritis of knee, unspecified Status: Acute Subjective Date/time seen: 03/26/25 07:50 Interval history: 74 y. o female with h/o afib, medication noncompliance admitted for rapid HR. IT started last night, she just didnot feel well, had mid chest pressure like discomfort. 03/26/2025 Review of Systems Review of Systems: All systems reviewed & are unremarkable except as noted in HPI and below Exam Const: General: comfortable Resp: Effort & Inspection: normal respiratory effort Auscultation: clear to auscultation bilaterally Cardio: Rhythm: abnormal rhythm GI: Auscultation: normal bowel sounds Skin: General skin exam: normal color Neuro: Speech: normal speech Motor exam (neuro): 5/5 motor strength present throughout Sensory Exam: normal sensation Objective Data Vital Signs Vital Signs: Vital Signs - 24 hr 03/25/25 08:00 03/25/25 08:00 03/25/25 08:23 Temperature 98.4 F Pulse Rate 99 91 Respiratory Rate 18 Blood Pressure 109/73 Pulse Oximetry 100 96 Oxygen Delivery Room Air 03/25/25 10:00 03/25/25 12:00 03/25/25 12:00 Temperature 97.8 F Pulse Rate 96 82 98 Respiratory Rate 18 Blood Pressure 117/61 Pulse Oximetry 98 Oxygen Delivery 03/25/25 14:00 03/25/25 16:00 03/25/25 16:00 Temperature 99.8 F H Pulse Rate 93 96 95 Respiratory Rate 18 Blood Pressure 122/72 Pulse Oximetry 100 Oxygen Delivery 03/25/25 18:00 03/25/25 20:00 03/25/25 20:00 Temperature 99.2 F Pulse Rate 98 93 Respiratory Rate 16 Blood Pressure 113/70 Pulse Oximetry 96 Oxygen Delivery Room Air 03/25/25 20:00 03/25/25 22:00 03/26/25 00:00 Temperature 98.6 F Pulse Rate 91 89 94 Respiratory Rate 16 Blood Pressure 103/55 L Pulse Oximetry 98 Oxygen Delivery 03/26/25 00:00 03/26/25 02:00 03/26/25 04:00 Temperature 99 F Pulse Rate 102 H 96 108 H Respiratory Rate 16 Blood Pressure 134/74 Pulse Oximetry 94 Oxygen Delivery 03/26/25 04:00 03/26/25 04:34 Temperature 99.0 F Pulse Rate 110 H Respiratory Rate Blood Pressure Pulse Oximetry Oxygen Delivery Intake/Output Intake/Output: Intake & Output 03/23/25 03/24/25 03/25/25 03/26/25 23:59 23:59 23:59 23:59 Intake Total 860 500 Output Total 550 Balance 860 -50 Meds/Results Medications: Active Medications Generic Name Dose Route Start Last Admin Trade Name Freq PRN Reason Stop Dose Admin Acetaminophen 650 mg 03/24/25 22:37 03/26/25 04:34 Acetaminophen 325 Mg Tablet PO 650 mg Q4H PRN Administration Mild Pain (1-3) or Fever Apixaban 5 mg 03/25/25 09:00 03/25/25 20:51 Apixaban 5 Mg Tablet PO 5 mg Q12HR DANE Administration Benzocaine 1 lozenge 03/25/25 10:50 Benzocaine/Menthol (*Bkc) 18 Ea Lozenge PO PRN PRN Sore Throat Diltiazem HCl 120 mg 03/25/25 06:00 03/25/25 08:46 Diltiazem Hcl Cd 120 Mg Cap.24hr PO 120 mg QAM DANE Administration Ondansetron HCl 4 mg 03/24/25 22:37 Ondansetron Inj 4 Mg/2 Ml Vial IV PUSH Q4H PRN Nausea Radiology Results: ITS Impressions Chest X-Ray 03/24/25 21:00 IMPRESSION: No focal infiltrate or effusion. Labs Labs: Laboratory Results - last 24 hr 03/26/25 04:32 WBC 10.6 H RBC 4.00 L Hgb 12.8 Hct 38.2 MCV 95.5 MCH 32.0 MCHC 33.5 RDW 12.4 Plt Count 221 MPV 10.8 H Immature Gran % (Auto) 0.3 Neut % (Auto) 75.6 H Lymph % (Auto) 13.2 L [place] % (Auto) 10.0 H Eos % (Auto) 0.5 Baso % (Auto) 0.4 Lymph # (Auto) 1.40 [place] # (Auto) 1.1 H Eos # (Auto) 0.1 Baso # (Auto) 0.0 Abs Immat Gran (auto) 0.03 Absolute Neuts (auto) 8.0 H Absolute Nucleated RBC 0.000 Nucleated RBC % 0.0 Sodium 134 L Potassium 3.9 Chloride 104 Carbon Dioxide 21 L Anion Gap 9 BUN 15 Creatinine 0.57 L Estim Creat Clear Calc 74 Estimated GFR > 60 Glucose 120 H Calcium 9.1 Magnesium 2.2 Total Bilirubin 1.5 H AST 31 ALT 20 Alkaline Phosphatase 73 Total Protein 7.3 Albumin 3.9 Quality VTE Prophylaxis VTE prophylaxis: pharmacologic ordered
[2025-03-26] MEDS: APIXABAN 5 MG TABLET PO (09:04)
[2025-03-26] MEDS: BENZOCAINE/MENTHOL (*BKC) 18 EA LOZENGE 1 LOZENGE PO (09:05)
[2025-03-26] MEDS: dilTIAZem HCL CD 120 MG CAP.24HR PO (09:10)
--- NOTE | 2025-03-26 10:03 | P.DS_ITS ---
DS: Admitting Diagnosis Discharge Date 03/26/2025 Admitting Diagnosis afib DS: Discharge Diagnosis Discharge Diagnosis (1) Atrial fibrillation with RVR: Code(s): I48.91 - Unspecified atrial fibrillation Status: Acute DS: Summary Hospital Course Reason for hospitalization: afib, chest pain Hospital Course: 74 y. o female with h/o afib, medication noncompliance admitted for rapid HR. IT started last night, she just didnot feel well, had mid chest pressure like discomfort. She states she was supposed to be on eliquis for her afib but stopped taking it as she didnot want to. She has vague c/o throat discomfort but unable to describe exactly what is bothering her. 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 Coughed up some secretions few days ago but no chills and no other specific complains. In ED: HR 146. Mild leukocytosis. BNP only mildly elevated. D-dimer is mildly elevated. CT was not completed as other etiologies are more likely. refer to ED documentation CHADS Vasc score-3 HAS BLED- 1 ECG - irregularly irregular narrow-complex tachycardia without associated P- waves, consistent with the diagnosis of Afib with RVR. Patient hemodynamically stable, cardizem 15mg- IV was given in ed Patient successfully rate-controlled, she was started on 30mg PO short-acting diltiazem q6 hours with holding parameters. It was chaged per nocturist to 120 mg daily diltiazem. Cardiology was consulted and she was admitted to IMU for close monitoring. pt is full code. Patient seen by Cardiology on 03/25 recommended continuing diltiazem and Eliquis and discussed importance of medication adherence once discharged. Agree that less likely MO is involved in chest discomfort, likely secondary to underlying rapid ventricular rates. On 03/26 patient denied any chest pain, shortness a breath, headaches or dizziness. Patient heart rate was in the low 100s, with response to diltiazem once administered. Blood otherwise unremarkable or near baseline. Patient has no indication for further hospitalization at this time. Last echocardiogram 08/22, no evidence of heart failure. Patient does not appear to be overloaded exam lung lim are clear auscultation. She is h emodynamically stable and can follow up with Cardiology in the outpatient setting. She will also be give information regarding new primary care physicians that she can follow-up with she will be sent home with prescription diltiazem and Eliquis for rate control and anticoagulation for underlying AFib. Patient is amenable to this plan and wishes to be discharged this time. Plan for discharge home. Status at Discharge Functional status at discharge: independent ambulation Overall status at discharge: patient is back to baseline Time Spent with Patient Time attestation: Total time spent providing and/or coordinating discharge services: 31 Exam Narrative: Gen - well appearing female in no acute respiratory distress who is nontoxic- appearing lying semi recumbent in bed HEENT - normocephalic. Atraumatic. Pupils equal round and reactive. Extraocular motions intact. No oral lesions. Moist mucous membranes. No facial asymmetry. Neck - neck was supple. No dominant adenopathy, thyromegaly or masses. 2+ carotid upstrokes without bruits. Chest - lungs are clear to auscultation bilaterally. No wheezes or crackles. Breast exam was deferred. CV -tachycardic, abnormal rhythm. S1-S2. No murmurs gallops or rubs. Abd - abdomen was soft. Nontender. Nondistended. Positive bowel sounds. No organomegaly or masses. Ext - no clubbing, cyanosis or edema. 2+ DP pulses bilaterally. Neuro - patient is alert and oriented x4. Strength is 5/5 in both upper and lower extremities. Cranial nerves 2-12 are intact. Speech is clear. Psych - normal mood and affect. Patient is pleasant and cooperative. Skin - warm and dry. No rashes noted. DS: Data Data Completed and Pending Labs on day of discharge: Labs from last 24 hours 03/26/25 04:32 WBC 10.6 H RBC 4.00 L Hgb 12.8 Hct 38.2 MCV 95.5 MCH 32.0 MCHC 33.5 RDW 12.4 Plt Count 221 MPV 10.8 H Immature Gran % (Auto) 0.3 Neut % (Auto) 75.6 H Lymph % (Auto) 13.2 L [place] % (Auto) 10.0 H Eos % (Auto) 0.5 Baso % (Auto) 0.4 Lymph # (Auto) 1.40 [place] # (Auto) 1.1 H Eos # (Auto) 0.1 Baso # (Auto) 0.0 Abs Immat Gran (auto) 0.03 Absolute Neuts (auto) 8.0 H Absolute Nucleated RBC 0.000 Nucleated RBC % 0.0 Sodium 134 L Potassium 3.9 Chloride 104 Carbon Dioxide 21 L Anion Gap 9 BUN 15 Creatinine 0.57 L Estim Creat Clear Calc 74 Estimated GFR > 60 Glucose 120 H Calcium 9.1 Magnesium 2.2 Total Bilirubin 1.5 H AST 31 ALT 20 Alkaline Phosphatase 73 Total Protein 7.3 Albumin 3.9 Discharge Plan Discharge Attending physician on discharge: Sean Chaves Consulting providers: Dieudonne Arteaga; Omero Nevarez; Breezy Whittington Discharging Clinician: Omero Nevarez Anticipated Discharge Date/Time: 03/26/25 10:00 Patient Disposition: Home Activity: as tolerated Diet: as tolerated Discharge Instructions: Take medications as prescribed. You will be prescribed Diltiazem and Eliquis, both are to be taken twice daily. Maintain a cardiac diet, 2 g sodium, do not over hydrate Remain active If you develop chest pain, shortness breath, fever greater than 101, nausea, or vomiting notify a clinician or come to the emergency department Follow-up with primary care provider within 1-2 weeks . You will also be given information of a Publishing Director to follow up with in 1-2 weeks. Thank you for choosing [facility] for your healthcare needs Patient Instructions: Antibiotic Form, Diltiazem (By mouth), Apixaban (By mouth) Patient Language: Citizen Of [place] Stand Alone Forms: General Discharge Information Follow-up/Referrals: Dieudonne Arteaga MD [Physician] - Grace Treviño APN-C [Advanced Practice Nurse] - Call for Appointment PHYSICIAN,SHOE SALESPERSON [Primary Care Provider] - Discharge Medications: New diltiazem HCl [Cardizem SR] 120 mg capsule,extended release 12 hr 120 mg PO BID Qty: 30 0RF Eliquis 5 mg tablet 5 mg PO BID Qty: 30 0RF No Action tobramycin 0.3 % drops 1 drp LEFT EYE Q4H 7 Days Qty: 5 0RF Date of admission: 03/24/25 22:37 Primary Care Provider: PHYSICIAN,SHOE SALESPERSON Admitting Provider: Lori Christian Attending physician on admission: Lori Christian Condition: Stable Quality VTE Prophylaxis VTE prophylaxis: pharmacologic ordered
== END 2025-03-26 14:42 | disposition home or self-care (01) ==
LOC: ANHED 20:46 → ANHIMU 23:54
PROVIDERS: Emergency Medicine; Nurse Practitioner; Admitting Provider Internal Medicine; Emergency Provider Student in an Organized Health Care Education/Training Program; Visit Provider Internal Medicine
DX: I48.0 Paroxysmal atrial fibrillation (principal); M17.12 Unilateral primary osteoarthritis, left knee; Z20.822 Contact with and (suspected) exposure to COVID-19; Z91.148 Patient's other noncompliance with medication regimen for other reason
CPT/HCPCS: 36415; 71045; 80053; 83690; 83735; 83880; 84443; 84484; 85025; 85380; 85610; 85730; 87637; 87651; 93005; 96374; 96375; 99285; A9270; G0378